=== PATIENT | male | born 1960 | race Caucasian/White ===

== ENCOUNTER 2023-07-30 10:12 | Outpatient (AMB) | payer OTHER, SELFPAY ==
[2023-07-30 10:19] VITALS: BP 132/70; PULSE 71; O2SAT 96; BMI 31.6
--- NOTE | 2023-07-30 10:19 | MHC.OFFVIS ---
Intake Vital Signs 07/30/23 10:19 Height 5 ft 10 in Weight 220 lb BMI 31.6 BP 132/70 Blood Pressure Location Lt brachial Position Sitting Pulse 71 Pulse Source Pulse Oximeter Pulse Oximetry (%) 96 Oxygen Delivery Method Room Air Intake Visit Reasons: COPD Valance Cutter Required: No Allergies meperidine [From Demerol] Adverse Reaction (Severe, Verified 07/30/23 10:22) Nausea HPI HPI Comments History of Present Illness Details The patient is here for a pulmonary evaluation. The patient is a 63-year-old gentleman with a known history of obstructive airway disease on Breo and Incruse who was subsequently referred for ongoing dyspnea on exertion. Apparently in 2018 the patient was diagnosed with follicular lymphoma localized to the groin. He was treated for this condition and currently being followed closely. He did have a PET scan just recently which we did get the report and reviewed together. Based on the CT PET no abnormalities noted in the thorax or the lungs. Does have not enlarged lymph nodes some with minimal FDG activity. Also some tendinitis otherwise good. He does continue to have dyspnea on exertion [id number] severity. Sometimes is limited by tendinitis that demonstrated on the PET scan. He does not always use his medication. Always concerned about taking too much medication or side effects. He does have Breo and Incruse he was not sure what to do how to taken. Therefore we came up with the protocol for him to use for now. We will in 4 she may benefit from something like Symbicort where he can use as needed with some relief. Will go ahead and request pulmonary function studies to assess his lung capacity at this time. Also, will get a flu shot before he goes home. Will have him come back in the springtime will discuss if we need to change his medications or they are working for him. [facility] Medical History (Updated 07/30/23 @ 12:31 by Porfirio Zapata MD) History of follicular lymphoma Dyspnea Asthma-COPD overlap syndrome Social History Patient Tobacco Use Status: Never used Tobacco Review of Systems Const Denies fever(s) and Reports weight gain ENT Denies nasal congestion Card Denies chest pain and Reports dyspnea on exertion Resp Reports dyspnea on exertion and Reports wheezing GI Reports no additional complaints Musc Reports muscle cramps and Reports stiffness Skin/Breast Denies rash Neuro Reports no additional complaints Noe/Lymph Denies easy bleeding, Denies easy bruising and Denies lymphadenopathy Aller/Immun Reports wheezing Physical Exam Vital Signs: Last Vital Signs Pulse 71 07/30/23 10:19 BP 132/70 07/30/23 10:19 Pulse Ox 96 07/30/23 10:19 Oxygen Delivery Method Room Air 07/30/23 10:19 BMI result Body Mass Index 31.6 Const General: comfortable HEENT Head: Yes normocephalic Neck Neck: Yes supple Chest Chest palpation & inspection: normal inspection of the chest Resp Effort & Inspection: normal respiratory effort and prolonged expiratory phase Auscultation: diminished lung sounds Cardio Heart sounds: S1 normal heart sound present and S2 normal heart sound present GI Palpation (GI): Soft to palpation Skin General skin exam: no rashes or lesions noted Extrem General: Yes no clubbing, cyanosis or edema Office Procedures Flu Questionnaire Does the patient have a severe egg allergy?: No Does the patient have severe life threatening allergies?: No Does the patient have a fever or illness today?: No Has the patient ever had Guillain-[place] Syndrome?: No Has the patient ever had any past reaction to a flu shot?: No Immunizations flu vacc [id number] 6mos up(PF) 60 mcg(15 mcgx4)/0.5 mL IM syringe Performing Provider: Porfirio Zapata MD Performing Location: [facility] Administered by: Clarisa Dobbs LPN on 07/30/23 11:19 Dose Route Admin Location Dispensed Lot Number Expiration Date NDC Byproducts Operator 0.5 mL IM Right Deltoid 0.5 mL [id number] 01/24/24 96096-825-95 [employer] VIS Given Date VIS Provided VIS Publication Date 07/30/23 Single Vaccine 21 Eligibility Eligibility Date Funding Source Not [facility] Eligible 07/30/23 Private Assessment & Plan Assessment & Plan (1) Asthma-COPD overlap syndrome: Code(s): J44.89 - Other specified chronic obstructive pulmonary disease (2) Dyspnea: Code(s): R06.00 - Dyspnea, unspecified Qualifiers: Dyspnea type: dyspnea on exertion Qualified Code(s): R06.09 - Other forms of dyspnea (3) History of follicular lymphoma: Code(s): Z85.72 - Personal history of non-Hodgkin lymphomas Plan Continue Breo and incruse consider changing to Symbicort MOISES as needed PFTs F/U 3-4 months Orders: Orders Influenza [id number] Immunization Today J44.9 - Chronic obstructive pulmonary disease, unspecified PFT pulmonary function test Today J44.89 - Other specified chronic obstructive pulmonary disease Coding Level of Care Code New Pt Level 4 (32942) Diagnoses Asthma-COPD overlap syndrome J44.89 Dyspnea on exertion R06.09 Dyspnea type: dyspnea on exertion History of follicular lymphoma Z85.72 Time Spent (min) 35
== END 2023-07-30 10:57 | disposition home or self-care (01) ==
PROVIDERS: PCP Internal Medicine Hematology & Oncology; Referring Provider Internal Medicine; Visit Provider Hospitalist
DX: J44.89 Other specified chronic obstructive pulmonary disease (principal); R06.09 Other forms of dyspnea; Z85.72 Personal history of non-Hodgkin lymphomas; J44.9 Chronic obstructive pulmonary disease, unspecified
CPT/HCPCS: 99204

== ENCOUNTER → 2023-07-30 10:12 | Outpatient (BNVA) | payer OTHER, SELFPAY | PROVIDERS: PCP Internal Medicine Hematology & Oncology; Referring Provider Internal Medicine; Visit Provider Hospitalist | DX: J44.89 Other specified chronic obstructive pulmonary disease (principal); R06.09 Other forms of dyspnea; Z85.72 Personal history of non-Hodgkin lymphomas; Z23 Encounter for immunization | CPT/HCPCS: 90471; 90686 ==

== ENCOUNTER 2023-11-06 11:00 | Outpatient (AMB) | payer OTHER, SELFPAY ==
[2023-11-06 11:03] VITALS: BP 120/74; PULSE 70; O2SAT 98; BMI 32.4
--- NOTE | 2023-11-06 11:03 | A.OFFVIS_ITS ---
Intake Vital Signs 11/06/23 11:03 Height 5 ft 10 in Weight 225 lb 15.581 oz BMI 32.4 BP 120/74 Blood Pressure Location Lt brachial Position Sitting Pulse 70 Pulse Source Pulse Oximeter Pulse Oximetry (%) 98 Oxygen Delivery Method Room Air Intake Visit Reasons: COPD [employer] Required: No Allergies meperidine [From Demerol] Adverse Reaction (Severe, Verified 11/06/23 11:06) Nausea HPI HPI Comments History of Present Illness Details The patient is a 63-year-old gentleman with a known history of obstructive airway disease on Breo and Incruse who was subsequently referred for ongoing dyspnea on exertion. Apparently in 2018 the patient was diagnosed with follicular lymphoma localized to the groin. He was treated for this condition and currently being followed closely. He did have a PET scan just recently which we did get the report and reviewed together. Based on the CT PET no abnormalities noted in the thorax or the lungs. Does have not enlarged lymph nodes some with minimal FDG activity. Also some tendinitis otherwise good. He does continue to have dyspnea on exertion [id number] severity. Sometimes is limited by tendinitis that demonstrated on the PET scan. He does not always use his medication. Always concerned about taking too much medication or side effects. He does have Breo and Incruse he was not sure what to do how to taken. Therefore we came up with the protocol for him to use for now. We will in she may benefit from something like Symbicort where he can use as needed with some relief. Will go ahead and request pulmonary function studies to assess his lung capacity at this time. Also, will get a flu shot before he goes home. Will have him come back in the springtime will discuss if we need to change his medications or they are working for him. 11/06/2023 the patient is here for a pulm onary follow-up visit. Overall he is well. He continues uses inhalers. Although he does not using daily. He does not feel like he needs them on a daily basis. He does have Breo and also Incruse. Apparently the Breo is not going to be company longer. He still has plenty since he does not use it daily and will call whenever he runs out. Will send him a generic combination inhaler at that point. He has not had to use his rescue inhaler. He does have history atrial fibrillation so I did mention to him to minimize the use of the rescue inhaler because it can indeed drive his AFib. He does feel the AFib at times. He does feel the palpitations in the regular rhythm. More recently he is noticed that he had been in the AFib. He does have the blood thinners. The patient does also have underlying daytime drowsiness and snoring. He was supposed to have sleep study in the past but for some reason it was never done. His [place] score is elevated 10/24. And was cardiac issues will go ahead and request a home sleep study this time. He may benefit more from an in-lab study but the patient states that he probably not be able sleeping the lab and therefore will go ahead with a home sleep study. No further imaging warranted at this time. Will go ahead and follow-up with him in 3-4 months to review his sleep study. Otherwise he will continue with his current respiratory regimen. [facility] Medical History (Updated 11/06/23 @ 11:19 by Porfirio Zapata MD) Afib JACKIE (obstructive sleep apnea) History of follicular lymphoma Dyspnea Asthma-COPD overlap syndrome Social History Patient Tobacco Use Status: Never used Tobacco Review of Systems Const Reports daytime sleepiness, Reports difficulty sleeping, Denies fever(s), Reports snoring and Reports weight gain ENT Denies nasal congestion Card Denies chest pain and Reports dyspnea on exertion Resp Reports dyspnea on exertion, Reports snoring and Reports wheezing GI Reports no additional complaints Musc Reports muscle cramps and Reports stiffness Skin/Breast Denies rash Neuro Reports no additional complaints Noe/Lymph Denies easy bleeding, Denies easy bruising and Denies lymphadenopathy Aller/Immun Reports wheezing Physical Exam Vital Signs: Last Vital Signs Pulse 70 11/06/23 11:03 BP 120/74 11/06/23 11:03 Pulse Ox 98 11/06/23 11:03 Oxygen Delivery Method Room Air 11/06/23 11:03 BMI result Body Mass Index 32.4 Const General: comfortable HEENT Head: Yes normocephalic Neck Neck: Yes supple Chest Chest palpation & inspection: normal inspection of the chest Resp Effort & Inspection: normal respiratory effort and prolonged expiratory phase Auscultation: diminished lung sounds Cardio Heart sounds: S1 normal heart sound present and S2 normal heart sound present GI Palpation (GI): Soft to palpation Skin General skin exam: no rashes or lesions noted Extrem General: Yes no clubbing, cyanosis or edema Assessment & Plan Assessment & Plan (1) Asthma-COPD overlap syndrome: Code(s): J44.89 - Other specified chronic obstructive pulmonary disease (2) Dyspnea: Code(s): R06.00 - Dyspnea, unspecified Qualifiers: Dyspnea type: dyspnea on exertion Qualified Code(s): R06.09 - Other forms of dyspnea (3) History of follicular lymphoma: Code(s): Z85.72 - Personal history of non-Hodgkin lymphomas (4) JACKIE (obstructive sleep apnea): Code(s): G47.33 - Obstructive sleep apnea (adult) (pediatric) (5) Afib: Code(s): I48.91 - Unspecified atrial fibrillation Plan Continue Breo and incruse MOISES as needed Home PSG F/U 3-4 months Orders: Orders RT home sleep study Today G47.33 - Obstructive sleep apnea (adult) (pediatric), I48.91 - Unspecified atrial fibrillation Coding Level of Care Code Est Pt Level 4 (83446) Diagnoses Asthma-COPD overlap syndrome J44.89 Dyspnea on exertion R06.09 Dyspnea type: dyspnea on exertion History of follicular lymphoma Z85.72 JACKIE (obstructive sleep apnea) G47.33 Afib I48.91 Time Spent (min) 16
== END 2023-11-06 11:21 | disposition home or self-care (01) ==
PROVIDERS: PCP Internal Medicine; Visit Provider Hospitalist
DX: J44.89 Other specified chronic obstructive pulmonary disease (principal); R06.09 Other forms of dyspnea; Z85.72 Personal history of non-Hodgkin lymphomas; G47.33 Obstructive sleep apnea (adult) (pediatric); I48.91 Unspecified atrial fibrillation
CPT/HCPCS: 99214

== ENCOUNTER → 2023-11-06 11:00 | Outpatient (BNVA) | payer OTHER, SELFPAY | PROVIDERS: PCP Internal Medicine Hematology & Oncology; Visit Provider Hospitalist ==

== ENCOUNTER 2024-02-16 10:11 | Outpatient (AMB) | payer OTHER, SELFPAY ==
--- NOTE | 2024-02-16 10:30 | MHC.OFFVIS ---
Vital Signs 02/16/24 10:31 Height 5 ft 10 in Weight 210 lb BMI 30.1 Pulse 67 Pulse Source Pulse Oximeter Pulse Oximetry (%) 96 Oxygen Delivery Method Room Air Intake Visit Reasons: COPD Allergies meperidine [From Demerol] Adverse Reaction (Severe, Verified 02/16/24 10:30) Nausea HPI Comments Details: The patient is a 63-year-old gentleman with a known history of obstructive airway disease on Breo and Incruse who was subsequently referred for ongoing dyspnea on exertion. Apparently in 2018 the patient was diagnosed with follicular lymphoma localized to the groin. He was treated for this condition and currently being followed closely. He did have a PET scan just recently which we did get the report and reviewed together. Based on the CT PET no abnormalities noted in the thorax or the lungs. Does have not enlarged lymph nodes some with minimal FDG activity. Also some tendinitis otherwise good. He does continue to have dyspnea on exertion [id number] severity. Sometimes is limited by tendinitis that demonstrated on the PET scan. He does not always use his medication. Always concerned about taking too much medication or side effects. He does have Breo and Incruse he was not sure what to do how to taken. Therefore we came up with the protocol for him to use for now. We will in 4 she may benefit from something like Symbicort where he can use as needed with some relief. Will go ahead and request pulmonary function studies to assess his lung capacity at this time. Also, will get a flu shot before he goes home. Will have him come back in the springtime will discuss if we need to change his medications or they are working for him. 11/06/2023 the patient is here for a pulmonary follow-up visit. Overall he is well. He continues uses inhalers. Although he does not using daily. He does not feel like he needs them on a daily basis. He does have Breo and also Incruse. Apparently the Breo is not going to be company longer. He still has plenty since he does not use it daily and will call whenever he runs out. Will send him a generic combination inhaler at that point. He has not had to use his rescue inhaler. He does have history atrial fibrillation so I did mention to him to minimize the use of the rescue inhaler because it can indeed drive his AFib. He does feel the AFib at times. He does feel the palpitations in the regular rhythm. More recently he is noticed that he had been in the AFib. He does have the blood thinners. The patient does also have underlying daytime drowsiness and snoring. He was supposed to have sleep study in the past but for some reason it was never done. His [place] score is elevated 10/24. And was cardiac issues will go ahead and request a home sleep study this time. He may benefit more from an in-lab study but the patient states that he probably not be able sleeping the lab and therefore will go ahead with a home sleep study. No further imaging warranted at this time. Will go ahead and follow-up with him in 3-4 months to review his sleep study. Otherwise he will continue with his current respiratory regimen. 02/16/2024 the patient is here for a pulmonary follow-up visit. The patient overall has been doing well. He is still having daytime drowsiness. His [place] score is elevated 10/24. He was supposed to have a home sleep study but then something came up and he could not have it done and then he has not rescheduled it. Therefore, I did give him the number in order for him to call and have that done specially since he continues to be symptomatic. For respiratory status he does uses inhalers with good effect. He has not had any imaging studies recently but he be following up with the oncologist soon. At this point will continue with the current respiratory therapy and will await the results of the home sleep study. [facility] Medical History (Updated 02/16/24 @ 22:53 by Porfirio Zapata MD) Afib JACKIE (obstructive sleep apnea) History of follicular lymphoma Dyspnea Asthma-COPD overlap syndrome Social History Patient Tobacco Use Status: Never used Tobacco Review of Systems Const Reports daytime sleepiness, Reports difficulty sleeping, Denies fever(s), Reports snoring and Reports weight gain ENT Denies nasal congestion Card Denies chest pain and Reports dyspnea on exertion Resp Reports dyspnea on exertion, Reports snoring and Denies wheezing GI Reports no additional complaints Musc Reports muscle cramps and Reports stiffness Skin/Breast Denies rash Neuro Reports no additional complaints Noe/Lymph Denies easy bleeding, Denies easy bruising and Denies lymphadenopathy Aller/Immun Denies wheezing Physical Exam Vital Signs: Last Vital Signs Pulse 67 02/16/24 10:31 Pulse Ox 96 02/16/24 10:31 Oxygen Delivery Method Room Air 02/16/24 10:31 BMI result Body Mass Index 30.1 Const General: comfortable HEENT Head: Yes normocephalic Neck Neck: Yes supple Chest Chest palpation & inspection: normal inspection of the chest Resp Effort & Inspection: normal respiratory effort Auscultation: diminished lung sounds Cardio Heart sounds: S1 normal heart sound present and S2 normal heart sound present GI Palpation (GI): Soft to palpation Skin General skin exam: no rashes or lesions noted Extrem General: Yes no clubbing, cyanosis or edema Assessment & Plan Assessment & Plan (1) Asthma-COPD overlap syndrome: Code(s): J44.89 - Other specified chronic obstructive pulmonary disease Category: Medical (2) Dyspnea: Code(s): R06.00 - Dyspnea, unspecified Category: Medical Qualifiers: Dyspnea type: dyspnea on exertion Qualified Code(s): R06.09 - Other forms of dyspnea (3) History of follicular lymphoma: Code(s): Z85.72 - Personal history of non-Hodgkin lymphomas Category: Medical (4) JACKIE (obstructive sleep apnea): Code(s): G47.33 - Obstructive sleep apnea (adult) (pediatric) Category: Medical (5) Afib: Code(s): I48.91 - Unspecified atrial fibrillation Category: Medical Qualifiers: Atrial fibrillation type: unspecified Qualified Code(s): I48.91 - Unspecified atrial fibrillation Plan Continue Breo and incruse MOISES as needed Home PSG F/U 6-8 months Coding Level of Care Code Est Pt Level 4 (58595) Diagnoses Asthma-COPD overlap syndrome J44.89 Dyspnea on exertion R06.09 Dyspnea type: dyspnea on exertion History of follicular lymphoma Z85.72 JACKIE (obstructive sleep apnea) G47.33 Atrial fibrillation, unspecified type I48.91 Atrial fibrillation type: unspecified Time Spent (min) 16
[2024-02-16 10:31] VITALS: PULSE 67; O2SAT 96; BMI 30.1
== END 2024-02-16 10:46 | disposition home or self-care (01) ==
PROVIDERS: PCP Internal Medicine; Visit Provider Hospitalist
DX: J44.89 Other specified chronic obstructive pulmonary disease (principal); R06.09 Other forms of dyspnea; Z85.72 Personal history of non-Hodgkin lymphomas; G47.33 Obstructive sleep apnea (adult) (pediatric); I48.91 Unspecified atrial fibrillation
CPT/HCPCS: 99214

== ENCOUNTER → 2024-02-16 10:11 | Outpatient (BNVA) | payer OTHER, SELFPAY | PROVIDERS: PCP Internal Medicine; Visit Provider Hospitalist | DX: G47.33 Obstructive sleep apnea (adult) (pediatric) (principal); I48.91 Unspecified atrial fibrillation ==

== ENCOUNTER → 2024-05-26 08:56 | Outpatient (REF) | payer OTHER, SELFPAY | LOC: HO.SL 08:56 | PROVIDERS: PCP Internal Medicine; Visit Provider Hospitalist | DX: G47.33 Obstructive sleep apnea (adult) (pediatric) (principal); I48.91 Unspecified atrial fibrillation | CPT/HCPCS: 95806 ==

== ENCOUNTER → 2024-05-26 09:15 | Outpatient (BNV) | payer OTHER, SELFPAY | PROVIDERS: PCP Internal Medicine; Visit Provider Internal Medicine | DX: G47.33 Obstructive sleep apnea (adult) (pediatric) (principal) | CPT/HCPCS: 95806 ==

== ENCOUNTER 2024-06-29 10:10 | Outpatient (AMB) | payer OTHER, SELFPAY ==
[2024-06-29 10:21] VITALS: BP 122/70; PULSE 75; O2SAT 98
--- NOTE | 2024-06-29 10:21 | A.OFFVIS_ITS ---
Vital Signs 06/29/24 10:21 BP 122/70 Blood Pressure Location Lt brachial Position Sitting Pulse 75 Pulse Source Pulse Oximeter Pulse Oximetry (%) 98 Oxygen Delivery Method Room Air Intake Visit Reasons: COPD/Sleep Study Follow Up Allergies meperidine [From Demerol] Adverse Reaction (Severe, Verified 06/29/24 10:25) Nausea Medication List - Last Reconciled 06/29/24 by Clarisa Dobbs LPN amlodipine-benazepril 10-20 mg 1 cap PO DAILY apixaban (Eliquis) 5 mg PO BID fluticasone furoate-vilanterol 100-25 mcg/dose (Breo Ellipta) 1 ea inhalation DAILY metoprolol tartrate 25 mg PO BID nebulizers As directed umeclidinium 62.5 mcg/actuation (Incruse Ellipta) 1 inh inhalation DAILY HPI Comments Details: The patient is a 64-year-old gentleman with a known history of obstructive airway disease on Breo and Incruse who was subsequently referred for ongoing dyspnea on exertion. Apparently in 2018 the patient was diagnosed with follicular lymphoma localized to the groin. He was treated for this condition and currently being followed closely. He did have a PET scan just recently which we did get the report and reviewed together. Based on the CT PET no abnormalities noted in the thorax or the lungs. Does have not enlarged lymph nodes some with minimal FDG activity. Also some tendinitis otherwise good. He does continue to have dyspnea on exertion [id number] severity. Sometimes is limited by tendinitis that demonstrated on the PET scan. He does not always use his medication. Always concerned about taking too much medication or side effects. He does have Breo and Incruse he was not sure what to do how to taken. Therefore we came up with the protocol for him to use for now. We will in 4 she may benefit from something like Symbicort where he can use as needed with some relief. Will go ahead and request pulmonary function studies to assess his lung capacity at this time. Also, will get a flu shot before he goes home. Will have him come back in the springtime will discuss if we need to change his medications or they are working for him. 11/06/2023 the patient is here for a pulmonary follow-up visit. Overall he is well. He continues uses inhalers. Although he does not using daily. He does not feel like he needs them on a daily basis. He does have Breo and also Incruse. Apparently the Breo is not going to be company longer. He still has plenty since he does not use it daily and will call whenever he runs out. Will send him a generic combination inhaler at that point. He has not had to use his rescue inhaler. He does have history atrial fibrillation so I did mention to him to minimize the use of the rescue inhaler because it can indeed drive his AFib. He does feel the AFib at times. He does feel the palpitations in the regular rhythm. More recently he is noticed that he had been in the AFib. He does have the blood thinners. The patient does also have underlying daytime drowsiness and snoring. He was supposed to have sleep study in the past but for some reason it was never done. His [place] score is elevated 10/24. And was cardiac issues will go ahead and request a home sleep study this time. He may benefit more from an in-lab study but the patient states that he probably not be able sleeping the lab and therefore will go ahead with a home sleep study. No further imaging warranted at this time. Will go ahead and follow-up with him in 3-4 months to review his sleep study. Otherwise he will continue with his current respiratory regimen. 02/16/2024 the patient is here for a pulmonary follow-up visit. The patient overall has been doing well. He is still having daytime drowsiness. His [place] score is elevated 10/24. He was supposed to have a home sleep study but then something came up and he could not have it done and then he has not rescheduled it. Therefore, I did give him the number in order for him to call and have that done specially since he continues to be symptomatic. For respiratory status he does uses inhalers with good effect. He has not had any imaging studies recently but he be following up with the oncologist soon. At this point will continue with the current respiratory therapy and will await the results of the home sleep study. 06/29/2024 the patient is here for pulmonary follow-up visit. Overall she is doing okay. He still complains of congestive cough. Also bothers him at nighttime. Feels like has a postnasal drip that causes the congestion in the chest area. Then he feels like the congestion in the mucus gets stuck in the back of throat and sometimes he needs to feel like he needs to manually remove it. In addition to that he has been having daytime drowsiness. His [place] score is elevated 06/19. He also have cardiovascular risk factors including atrial fibrillation. He did undergo a home sleep study which we personally reviewed. The patient had an AHI of 8 in addition to have a heart rate elevated and also was noted to be hypoxic. Therefore, I do recurrent the patient start CPAP at this time. The patient is also recovering after COVID. After the COVID the patient did develop a productive cough and chest congestion. Therefore will go ahead and treat him from bronchitis postviral. And also will provide him with a nasal spray. [facility] Medical History (Updated 02/16/24 @ 22:53 by Porfirio Zapata MD) Afib JACKIE (obstructive sleep apnea) History of follicular lymphoma Dyspnea Asthma-COPD overlap syndrome Social History Patient Tobacco Use Status: Never used Tobacco Review of Systems Const Reports daytime sleepiness, Reports difficulty sleeping, Denies fever(s), Reports snoring and Reports weight gain ENT Denies nasal congestion Card Denies chest pain and Reports dyspnea on exertion Resp Reports dyspnea on exertion, Reports snoring and Denies wheezing GI Reports no additional complaints Musc Reports muscle cramps and Reports stiffness Skin/Breast Denies rash Neuro Reports no additional complaints Noe/Lymph Denies easy bleeding, Denies easy bruising and Denies lymphadenopathy Aller/Immun Denies wheezing Physical Exam Vital Signs: Last Vital Signs Pulse 75 06/29/24 10:21 BP 122/70 06/29/24 10:21 Pulse Ox 98 06/29/24 10:21 Oxygen Delivery Method Room Air 06/29/24 10:21 Const General: comfortable HEENT Head: Yes normocephalic Neck Neck: Yes supple Chest Chest palpation & inspection: normal inspection of the chest Resp Effort & Inspection: normal respiratory effort Auscultation: diminished lung sounds Cardio Heart sounds: S1 normal heart sound present and S2 normal heart sound present GI Palpation (GI): Soft to palpation Skin General skin exam: no rashes or lesions noted Extrem General: Yes no clubbing, cyanosis or edema Assessment & Plan Assessment & Plan (1) Asthma-COPD overlap syndrome: Code(s): J44.89 - Other specified chronic obstructive pulmonary disease Category: Medical (2) Dyspnea: Code(s): R06.00 - Dyspnea, unspecified Category: Medical Qualifiers: Dyspnea type: dyspnea on exertion Qualified Code(s): R06.09 - Other forms of dyspnea (3) History of follicular lymphoma: Code(s): Z85.72 - Personal history of non-Hodgkin lymphomas Category: Medical (4) JACKIE (obstructive sleep apnea): Code(s): G47.33 - Obstructive sleep apnea (adult) (pediatric) Category: Medical (5) Afib: Code(s): I48.91 - Unspecified atrial fibrillation Category: Medical Qualifiers: Atrial fibrillation type: unspecified Qualified Code(s): I48.91 - Unspecified atrial fibrillation Plan stop Breo and incruse start Doxycycline ipratropium nasal nasal spray MOISES as needed start APAP F/U 3-4 months Medications: New doxycycline monohydrate 100 mg PO BID 28 tabs 0RF 14 days ipratropium bromide administer into each nostril 2 sprays intranasal TID PRN 15 mL 6RF allergy symptoms Coding Level of Care Code Est Pt Level 4 (96666) Diagnoses Asthma-COPD overlap syndrome J44.89 Dyspnea on exertion R06.09 Dyspnea type: dyspnea on exertion History of follicular lymphoma Z85.72 JACKIE (obstructive sleep apnea) G47.33 Atrial fibrillation, unspecified type I48.91 Atrial fibrillation type: unspecified Time Spent (min) 17
== END 2024-06-29 10:59 | disposition home or self-care (01) ==
PROVIDERS: PCP Internal Medicine; Visit Provider Hospitalist
DX: J44.89 Other specified chronic obstructive pulmonary disease (principal); R06.09 Other forms of dyspnea; Z85.72 Personal history of non-Hodgkin lymphomas; G47.33 Obstructive sleep apnea (adult) (pediatric); I48.91 Unspecified atrial fibrillation
CPT/HCPCS: 99214

== ENCOUNTER → 2024-06-29 10:10 | Outpatient (BNVA) | payer OTHER, SELFPAY | PROVIDERS: PCP Internal Medicine; Visit Provider Hospitalist ==

== ENCOUNTER 2024-11-25 10:34 | Outpatient (AMB) | payer OTHER, SELFPAY ==
[2024-11-25 10:45] VITALS: BP 116/62; PULSE 70; O2SAT 97; BMI 29.9
--- NOTE | 2024-11-25 10:45 | A.OFFVIS_ITS ---
Vital Signs 11/25/24 10:45 Height 5 ft 10 in Weight 208 lb 5.389 oz BMI 29.9 BP 116/62 Blood Pressure Location Lt brachial Position Sitting Pulse 70 Pulse Source Pulse Oximeter Pulse Oximetry (%) 97 Oxygen Delivery Method Room Air Intake Visit Reasons: COPD Power Plant Inspector Required: No Accompanied by: Self / Same As Patient Allergies meperidine [From Demerol] Adverse Reaction (Severe, Verified 11/25/24 10:48) Nausea HPI Comments Details: The patient is a 64-year-old gentleman with a known history of obstructive airway disease on Breo and Incruse who was subsequently referred for ongoing dyspnea on exertion. Apparently in 2018 the patient was diagnosed with follicular lymphoma localized to the groin. He was treated for this condition and currently being followed closely. He did have a PET scan just recently which we did get the report and reviewed together. Based on the CT PET no abnormalities noted in the thorax or the lungs. Does have not enlarged lymph nodes some with minimal FDG activity. Also some tendinitis otherwise good. He does continue to have dyspnea on exertion ktyt-ed-holswcqz severity. Sometimes is limited by tendinitis that demonstrated on the PET scan. He does not always use his medication. Always concerned about taking too much medication or side effects. He does have Breo and Incruse he was not sure what to do how to taken. Therefore we came up with the protocol for him to use for now. We will in 4 she may benefit from something like Symbicort where he can use as needed with some relief. Will go ahead and request pulmonary function studies to assess his lung capacity at this time. Also, will get a flu shot before he goes home. Will have him come back in the springtime will discuss if we need to change his medications or they are working for him. 11/06/2023 the patient is here for a pulmonary follow-up visit. Overall he is well. He continues uses inhalers. Although he does not using daily. He does not feel like he needs them on a daily basis. He does have Breo and also Incruse. Apparently the Breo is not going to be company longer. He still has plenty since he does not use it daily and will call whenever he runs out. Will send him a generic combination inhaler at that point. He has not had to use his rescue inhaler. He does have history atrial fibrillation so I did mention to him to minimize the use of the rescue inhaler because it can indeed drive his AFib. He does feel the AFib at times. He does feel the palpitations in the regular rhythm. More recently he is noticed that he had been in the AFib. He does have the blood thinners. The patient does also have underlying daytime drowsiness and snoring. He was supposed to have sleep study in the past but for some reason it was never done. His [place] score is elevated 10/24. And was cardiac issues will go ahead and request a home sleep study this time. He may benefit more from an in-lab study but the patient states that he probably not be able sleeping the lab and therefore will go ahead with a home sleep study. No further imaging warranted at this time. Will go ahead and follow-up with him in 3-4 months to review his sleep study. Otherwise he will continue with his current respiratory regimen. 02/16/2024 the patient is here for a pulmonary follow-up visit. The patient overall has been doing well. He is still having daytime drowsiness. His [place] score is elevated 10/24. He was supposed to have a home sleep study but then something came up and he could not have it done and then he has not rescheduled it. Therefore, I did give him the number in order for him to call and have that done specially since he continues to be symptomatic. For respiratory status he does uses inhalers with good effect. He has not had any imaging studies recently but he be following up with the oncologist soon. At this point will continue with the current respiratory therapy and will await the results of the home sleep study. 06/29/2024 the patient is here for pulmonary follow-up visit. Overall she is doing okay. He still complains of congestive cough. Also bothers him at nighttime. Feels like has a postnasal drip that causes the congestion in the chest area. Then he feels like the congestion in the mucus gets stuck in the back of throat and sometimes he needs to feel like he needs to manually remove it. In addition to that he has been having daytime drowsiness. His [place] score is elevated 11/24. He also have cardiovascular risk factors including atrial fibrillation. He did undergo a home sleep study which we personally reviewed. The patient had an AHI of 8 in addition to have a heart rate elevated and also was noted to be hypoxic. Therefore, I do recurrent the patient start CPAP at this time. The patient is also recovering after COVID. After the COVID the patient did develop a productive cough and chest congestion. Therefore will go ahead and treat him from bronchitis postviral. And also will provide him with a nasal spray. 11/25/2024 the patient is here for pulmonary follow-up visit. Overall he is doing okay. He has a hard time tolerating the CPAP. Can not seem to fall asleep with it. He struggles with it. Has not seen any benefit from it as of yet. He is willing to try a sleep aid to see if we can him to fall asleep. He prefers sleeping on his belly and does want his most of the apneic episodes. If she can not tolerate the CPAP be moving the sleep aid he can try positional therapy sleeping with the right side down. I did recommend a positional pillow or symptoms we can continue in the position. In the meantime he has a hard time with his breathing. Has had some chest tightness and wheezing. Initially could not get his medications because of the significant co-pay is in the donut hole. Now he states that after spending serum on my he can get his medications regularly some put him back on Trelegy and can take that daily and should have a rescue inhaler also available. He does have some wheezing on exam. The patient will bring his CPAP to the next visit in 4 months if he has any issues prior to that he will call for an earlier assessment. [facility] Medical History Afib JACKIE (obstructive sleep apnea) History of follicular lymphoma Dyspnea Asthma-COPD overlap syndrome Social History Alcohol intake: current Alcohol intake frequency: 0-2 drinks per day Patient Tobacco Use Status: Never used Tobacco Review of Systems Const Denies chills, Denies fatigue, Denies fever(s), Denies weight gain and Denies weight loss ENT Denies dizziness Card Denies chest pain, Denies leg edema, Denies lightheadedness, Denies palpitations, Reports dyspnea on exertion, Denies orthopnea and Denies other Resp Reports cough and Reports dyspnea on exertion GI Denies hematochezia and Denies change in stool character Musc Denies abnormal gait, Denies muscle weakness, Denies numbness, Denies radiating pain into limb and Denies tingling Neuro Denies abnormal gait, Denies dizziness, Denies numbness and Denies tingling Endo Denies fatigue and Denies palpitations Physical Exam Vital Signs: Last Vital Signs Pulse 70 11/25/24 10:45 BP 116/62 11/25/24 10:45 Pulse Ox 97 11/25/24 10:45 Oxygen Delivery Method Room Air 11/25/24 10:45 BMI result Body Mass Index 29.9 Const General: comfortable HEENT Head: Yes normocephalic Neck Neck: Yes supple Chest Chest palpation & inspection: normal inspection of the chest Resp Effort & Inspection: normal respiratory effort Auscultation: diminished lung sounds Cardio Heart sounds: S1 normal heart sound present and S2 normal heart sound present GI Palpation (GI): Soft to palpation Skin General skin exam: no rashes or lesions noted Extrem General: Yes no clubbing, cyanosis or edema Assessment & Plan Assessment & Plan (1) Asthma-COPD overlap syndrome: Code(s): J44.89 - Other specified chronic obstructive pulmonary disease Category: Medical (2) Dyspnea: Code(s): R06.00 - Dyspnea, unspecified Category: Medical Qualifiers: Dyspnea type: dyspnea on exertion Qualified Code(s): R06.09 - Other forms of dyspnea (3) History of follicular lymphoma: Code(s): Z85.72 - Personal history of non-Hodgkin lymphomas Category: Medical (4) JACKIE (obstructive sleep apnea): Code(s): G47.33 - Obstructive sleep apnea (adult) (pediatric) Category: Medical (5) Afib: Code(s): I48.91 - Unspecified atrial fibrillation Category: Medical Qualifiers: Atrial fibrillation type: unspecified Qualified Code(s): I48.91 - Unspecified atrial fibrillation Plan start Trelegy start Ambien as needed for needed ipratropium nasal nasal spray MIOSES as needed continue APAP F/U 3-4 months Medications: New gxlgawixkhd-umkbtbaek-ufcjchko 100-62.5-25 mcg (Trelegy Ellipta) 1 inh inhalation DAILY 60 ea 11RF 30 days J44.9 - Chronic obstructive pulmonary disease, unspecified zolpidem (Ambien) 5 mg PO BEDTIME PRN 30 tabs 0RF sleep 30 days albuterol sulfate 90 mcg/actuation 2 inhalations inhalation Q6H PRN 18 grams 12RF shortness of breath or wheezing 30 days J44.9 - Chronic obstructive pulmonary disease, unspecified Coding Level of Care Code Est Pt Level 4 (01650) Complex EM visit Add On G2211 Diagnoses Asthma-COPD overlap syndrome J44.89 Dyspnea on exertion R06.09 Dyspnea type: dyspnea on exertion History of follicular lymphoma Z85.72 JACKIE (obstructive sleep apnea) G47.33 Atrial fibrillation, unspecified type I48.91 Atrial fibrillation type: unspecified Time Spent (min) 17
--- OUTSIDE RECORDS SUMMARY | 2024-11-25 11:39 | XMS_ITS | Clinical Summary ---
Author Organization [facility] Address [address] [place] [address] Care Team Providers Care Bend Sorter Name Role Phone Krishan Cruz MD Primary Care Provider Allergies Active Allergy Reactions Criticality Noted Date Comments Meperidine 09/01/2017 Medications Medication Sig Dispensed Refills Start Date End Date Status albuterol (PROVENTIL HFA;VENTOLIN HFA) 108 (90 BASE) MCG/ACT inhaler Inhale 2 puffs into the lungs every 6 (six) hours as needed. 0 Active Fluticasone Furoate-Vilanterol (BREO ELLIPTA IN) Inhale into the lungs. 0 Active INCRUSE ELLIPTA 62.5 MCG/INH AEPB INHALE 1 PUFF PO QD 11 10/22/2017 Act geo aspirin 81 MG chewable tablet Chew 1 tablet (81 mg total) by mouth daily. 0 Active Multiple Vitamins-Minerals (MULTIVITAMIN ADULT PO) Take 1 tablet by mouth daily. 0 Active vitamin B-12 (CYANOCOBALAMIN) tablet 1000 mcg Take 1 tablet (1,000 mcg total) by mouth daily. 0 Active omeprazole (PriLOSEC) 20 MG capsule Take 2 capsules (40 mg total) by mouth daily. 0 Active amLODIPine 5 MG TABS 1 tablet, benazepril 20 MG TABS 1 tablet Take 1 tablet by mouth daily. 0 Active Eliquis 5 MG TABS tablet Take 1 tablet (5 mg total) by mouth 2 (two) times a day. 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 Asthma 12/23/2016 Obstructive sleep apnea syndrome 10/21/2016 Family History Medical History Relation Name Comments Cancer Brother 1 skin- squamus c ell ca - face No Sig Med Hx Brother 2 No Sig Med Hx Brother 3 No Sig Med Hx Daughter Cancer Father brain tumor- di ed from it Cancer Maternal Grandmother hodgkin lymphoma - from it No Sig Med Hx Mother Cancer Paternal Grandmother brain t umor No Sig Med Hx Sister No Sig Med Hx Son Relation Name Status Comments Brother 1 Alive Brother 2 Alive TWIN Brother 3 Alive Daughter Alive Father Maternal Grandmother Mother Alive Paternal Grandmother Sister Alive Son Alive Social History Tobacco Use Types Packs/Day Years Used Date Smoking Tobacco: Never Smokeless Tobacco: Never Alcohol Use Standard Drinks/Week Comments Yes 0 (1 standard drink = 0.6 oz pur e alcohol) Vodka - 1 pint daily Sex and Gender Information Value Date Recorded Sex Assigned at Not on file Gender Identity Not on file Sexual Orientation Not on file Job Start Date Occupation Industry Not on file Not on file Not on file Last Filed Vital Signs Vital Sign Reading Time Taken Comments Blood Pressure 143/74 04/26/2024 10:01 AM EDT Pulse 65 04/26/2024 10:01 AM EDT Temperature 36.6 ??C (97.8 ??F) 04/26/2024 10:01 AM E DT Respiratory Rate - - Oxygen Saturation 100% 04/26/2024 10:01 AM EDT Inhaled Oxygen Concentration - - Weight 94.1 kg (207 lb 6.4 oz) 04/26/2024 10:01 AM EDT Height 177.8 cm (5' 10 ) 04/26/2024 10:01 AM EDT Body Mass Index 29.76 04/26/2024 10:01 AM EDT Plan of Treatment Health Maintenance Due Date Last Done Comments Hepatitis C Screening 1960 Pneumococcal Vaccine (1 of 2 - PCV) 1964 Depression Screening 1970 Preventative Health Evaluation 1976 Shingrix-Zoster Vaccine (1 o f 2) 1977 Colon Cancer Screening (Colonoscopy) 2003 RSV Adult > 60+ Yrs or (1 - Risk 60-74 years 1-dose series) 2018 COVID-19 Vaccine (3 - Pfizer risk series) 12/26/2020 11/28/2020, 11/06/2020 Fall Risk Assessment 2023 Influenza Vaccine (#1) 2024 DTap / Tdap / Td (3 - Td or Tdap) 04/30/2029 04/30/2019, 03/16/2017 Hepatitis B Vaccines Aged Out No long er eligible based on patient's age to complete this topic RSV Ped < 20 months Aged Out No longe r eligible based on patient's age to complete this topic Care Teams Bend Sorter Relationship Specialty Start Date End Date Krishan Cruz MD PCP - General Internal Medicine 08/27/17
--- OUTSIDE RECORDS SUMMARY | 2024-11-25 11:39 | XMS_ITS | Encounter Summary ---
Author Organization [facility] Address [address] [place] [address] Care Team Providers Care Load Checker Name Role Phone Krishan Cruz MD Primary Care Provider + [phone] Encounter Details Date Type Department Care Team (Late st Contact Info) Description 04/26/2024 9:54 AM EDT Hospital Encounter TH HISTORIC ENCOUNTERS [facility] CONVERSION ONLY Radha Yap MD [address] [place] [phone] Social History Tobacco Use Types Packs/Day [...] 10:28 AM Encounter Date: 04/26/2024 Status: Signed Political Science Instructor: Radha Hamilton MD (Physician) CHIEF COMPLAINT: Chief [...] I will make a referral to Lesley oLuise as this might be easier for him. [...] a curable disease however we could expect fci remission given his limited disease. We will [...] sweats. He remains active, working in the [employer] business. He has gained some weight over [...] Copy reviewed with the patient and reassured. He has in fact gained some weight. He has [...] 12/23/2016 ? COPD (chronic obstructive pulmonary disease) ([facility]) 03/08/2018 ? Obstructive sleep apnea syndrome 10/21/2016 ? Simple chronic bronchitis ([facility]) 01/15/2018 ? Hot flashes 08/13/2022 ? Paroxysmal atrial fibrillation ([facility]) 08/13/2022 ? Axillary lymphadenopathy 04/06/2023 ? Hydrocele, [...] Care Team (Late st Contact Info) Description 03/28/2025 10:20 AM EDT Office Visit [facility] [address] [place] [address] Cecil Almonte MD [address] [place] [address],[address] [address] 04/26/2025 9:45 AM EDT Office Visit [facility] Hematology Oncology [address] [place] [phone] Zainab-Radha Ribera MD [address] [place] [phone] documented as of this encounter Visit Diagnoses Not on filedocumented in this encounter Care Teams Load Checker Relationship Specialty Start Date End Date Krishan Cruz MD PCP - General Internal Medicine 04/14/22 documented as of this encounter
--- OUTSIDE RECORDS SUMMARY | 2024-11-25 11:40 | XMS_ITS | Encounter Summary ---
Author Organization [facility] Address [address] [place] [address] Care Team Providers Care Composition Weatherboard Applier Name Role Phone Devi Dang Primary Care Provider Unavail able Gamaliel Rodgers MD Unavailable [phone] Ayaka Garcia NP Unavailable + [phone] Krishan Cruz MD Primary Care Provider Unav ailable Krishan Cruz MD Primary Care Provider Unav ailable Reason for Visit * Reason Onset Date Comments hospital follow up 04/09/2022 Patient reque sting HFU apopointment jannette Almonte Encounter Details Date Type Department Care Team Description 04/09/2022 Telephone Cardio PVC POC [address] [facility] [address] [place] [address] Gamaliel Rodgers MD [address] [place] [address] hospital follow up (Patient requesting HFU apopointment jannette Almonte) Social History Tobacco Use Types Packs/Day Years Used Date Smoking Tobacco: Never Smokeless Tobacco: Never Alcohol Use Standard Drinks/Week Comments Yes 6 (1 standard drink = 0.6 oz pur e alcohol) Sex Assigned at Date Recorded Not on file Job Start Date Occupation Industry Not on file Not on file Not on file documented as of this encounter Miscellaneous Notes * Telephone Encounter - Dayanara Lopez - 04/10/2022 2:16 PM EDT Hospital follow up appointment scheduled with Ayaka Garcia on Thursday, April 28, 2022 at 1:30PM. I called Daniele and left a voicemail with the appointment info. * Telephone Encounter - Shelby Matthews - 04/09/2022 10:33 AM EDT Patient is requesting hospital follow appointment with , he was discharged from [facility] on 04/08/22. Patient could be reached at [phone] documented in this encounter Plan of Treatment Not on file documented as of this encounter Visit Diagnoses Not on filedocumented in this encounter Care Teams Composition Weatherboard Applier Relationship Specialty Start Date End Date Devi Dang PCP - General Internal Medicine 10/22/21 04/13/22 Krishan Cruz MD [address] [place] [address] PCP - General Internal Medicine 04/14/22 03/11/23 Krishan Cruz MD [address] [place] [address] PCP - General Internal Medicine 03/12/23 Gamaliel Rodgers MD [address] [place] [address] Specialist Cardiovascular Disease 10/22/21 Ayaka Garcia, LYN [address] [place] [address] Cardiology 04/10/22 documented as of this encounter
--- OUTSIDE RECORDS SUMMARY | 2024-11-25 11:40 | XMS_ITS | Encounter Summary ---
Author Organization [facility] Address [address] [place] [address] Care Team Providers Care Electrician Front Name Role Phone Devi Dang Primary Care Provider Unavail able Gamaliel Rodgers MD Unavailable [phone] Ayaka Garcia TOURIST CABIN KEEPER Unavailable + [phone] Krishan Cruz MD Primary Care Provider Unav ailable Krishan Cruz MD Primary Care Provider Unav ailable Encounter Details Date Type Department Care Team Description 04/08/2022 Telephone Cardio PVC [facility] [address] [place] [address] Cecil Almonte MD [address] [place] [address] Social History Tobacco Use Types Packs/Day Years [...] encounter Miscellaneous Notes * Telephone Encounter - Gamaliel Rodgers MD - 04/08/2022 4:12 PM EDT Gideon Jacob * Telephone Encounter - Cecil Almonte MD - 04/08/2022 1:54 PM EDT I saw Mr. Wynn at [facility] in consultation. He came in for evaluation of palpitations and was found to be in atrial fibrillation with a moderately rapid ventricular response. He wasunclear regarding the onset of symptoms and the duration of his dysrhythmia. I initially plan to treat him with rate control but his rate actually worsened despite metoprolol 50 mg twice daily. Accordingly this morning I started him on Eliquis and made arrangements for a KESHA guided cardioversion. The patient spontaneously converted to sinus rhythm less than an hour prior to his anticipated cardioversion. Accordingly I am sending him home on Eliquis 5 mg twice a day and metoprolol 50 mg twice a day. He states that he will immediately stop drinking alcohol. He additionally reports that his is an uncontrolled alcoholic for whom he is seeking crisis intervention. I am making arrangements for a 48-hour Holter monitor to be performed next week and for an echocardiogram to be scheduled in the near future prior to anticipated follow-up evaluation by either Ayaka Garcia or Sandeep Rodgers. Consideration might be given in the future to a sleep study to rule out ob structive sleep apnea syndrome. I am hopeful that this note helps coordinate his ongoing care. Please send a copy of this note to Dr. Krishan Cruz... documented in this encounter Plan of Treatment Not on file documented as of this encounter Results * ECG HOLTER MONITOR, REVIEW/INTERP (07/16/2022) Cecil Almonte MD CARDIOLOGY Performing Organization Address [facility] de Phone Number PVCA * ECHO COMPLETE WITH CONTRAST IF CLINICALLY INDICATED (04/24/2022) Cecil Almonte MD CARDIOLOGY Performing Organization Address [facility] Co de Phone Number PVCA documented in this encounter Visit Diagnoses Diagnosis Paroxysmal atrial fibrillation (HCC)- Primary Atrial fibrillation Essential hypertension Unspecified essential hypertension documented in this encounter Care Teams Electrician Front Relationship Specialty Start Date End Date Devi Dang PCP - General Internal Medicine 10/22/21 04/13/22 Krishan Cruz MD [address] [facility] [address] [place] [address] PCP - General Internal Medicine 04/14/22 03/11/23 Krishan Cruz MD [address] [place] [address] PCP - General Internal Medicine 03/12/23 Gamaliel Rodgers MD [address] [place] [address] Specialist Cardiovascular Disease 10/22/21 Ayaka Garcia NP [address] [place] [address] Cardiology 04/10/22 documented as of this encounter
--- OUTSIDE RECORDS SUMMARY | 2024-11-25 11:40 | XMS_ITS | Encounter Summary ---
Author Organization [facility] Address [address] [place] [address] Care Team Providers Care Process Assistant Name Role Phone Devi Dang Primary Care Provider Unavail able Gamaliel Rodgers MD Unavailable [phone] Ayaka Garcia BOWLING OR SKATING FRONT DESK CLERK Unavailable [phone] Krishan Cruz MD Primary Care Provider Unav ailable Krishan Cruz MD Primary Care Provider Unav ailable Encounter Details Date Type Department Care Team Description 03/26/2022 SCAN Medical Records [address] [place] [address] Abstract, Provider Social History Tobacco Use Types Packs/Day Years Used Date Smoking Tobacco: Never Smokeless Tobacco: Never Alcohol Use Standard Drinks/Week Comments Yes 6 (1 standard drink = 0.6 oz pur e alcohol) Sex Assigned at Date Recorded Not on file Job Start Date Occupation Industry Not on file Not on file Not on file documented as of this encounter Plan of Treatment Not on file documented as of this encounter Procedures Procedure Name Priority Date/Time Associated Diagnosis Comments OUTSIDE LAB Routine 03/26/2022 documented in this encounter Results * OUTSIDE LAB (03/26/2022) Provider Abstract LAB documented in this encounter Visit Diagnoses Not on filedocumented in this encounter Care Teams Process Assistant Relationship Specialty Start Date End Date Devi Dang PCP - General Internal Medicine 10/22/21 04/13/22 Krishan Cruz MD [address] [facility] [address] [place] [address] PCP - General Internal Medicine 04/14/22 03/11/23 Krishan Cruz MD [address] [place] [address] PCP - General Internal Medicine 03/12/23 Gamaliel Rodgers MD [address] [place] [address] Specialist Cardiovascular Disease 10/22/21 Ayaka Garcia NP [address] [place], [place] [id number] Cardiology 04/10/22 documented as of this encounter
--- OUTSIDE RECORDS SUMMARY | 2024-11-25 11:40 | XMS_ITS | Clinical Summary ---
Author Organization [facility] Address [address] [place] [address], [place] [address] Care Team Providers Care Lasting Machine Operator Bed Name Role Phone Krishan Cruz MD Primary Care Provider [phone] Allergies Active Allergy Reactions Criticality Noted Date Comments Meperidine 09/01/2017 Medications Fluticasone Furoate-Vilanter ol (Breo Ellipta) 100-25 MCG/INH aerosol powder Active lisinopril-hydro CHLOROthiazide (PRINZIDE,ZESTOR ETIC) 20-12.5 MG per tablet Take 1 tablet by mouth 1 (one) time each day Active metoprolol tartrate (LOPRESSOR) 25 MG tablet Take 1 tablet by mouth 2 (two) times a day Active Umeclidinium [place] (Incruse Ellipta) 62.5 MCG/INH aerosol powder Active Active Problems Problem Noted Date Diagnosed Date Essential hypertension 10/03/2020 Family history of neoplasm of central nervous sy stem 12/14/2019 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 Chronic obstructive pulmonary disease 03/08/2018 Simple chronic bronchitis 01/15/2018 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 Asthma 12/23/2016 Obstructive sleep apnea syndrome 10/21/2016 Family History Medical History Relation Comments Hypertension Father Relation Status Comments Father Mother Alive Social History Tobacco Use Types Packs/Day Years Used Date Smoking Tobacco: Never Smokeless Tobacco: Never Alcohol Use Standard Drinks/Week Comments Yes 0 (1 standard drink = 0.6 oz pure alcohol) Alcoholic Drinks/day: 3 or more drinks per day Sex and Gender Information Value Date Recorded Sex Assigned at Not on file Legal Sex Male 4:56 PM EST Gender Identity Not on file Sexual Orientation Not on file Last Filed Vital Signs Vital Sign Reading Time Taken Comments Blood Pressure 150/90 09/26/2019 12:00 PM EST Pulse 79 09/26/2019 12:00 PM EST Temperature - - Respiratory Rate - - Oxygen Saturation - - Inhaled Oxygen Concentration - - Weight 98 kg (216 lb) 09/26/2019 12:00 PM EST Height 177.8 cm (5' 10 ) 11/17/2019 12:00 PM EDT Body Mass Index 30.99 09/26/2019 12:00 PM EST Plan of Treatment Health Maintenance Due Date Last Done Comments Pneumococcal Vaccine: 50+ Ye ars (1 of 2 - PCV) 1977 Colorectal Cancer Screening: Annual FOBT 2007 Colorectal Cancer Screening: Colonoscopy 2007 Colorectal Cancer Screening: Sigmoidoscopy 2007 Influenza Vaccine (Season Ended) 2025 Hepatitis B Vaccine Aged Out No longe r eligible based on patient's age to complete this topic Care Teams Lasting Machine Operator Bed Relationship Specialty Start Date End Date Krishan Cruz MD [address] [place] [address] PCP - General 08/06/20
--- OUTSIDE RECORDS SUMMARY | 2024-11-25 11:40 | XMS_ITS | Encounter Summary ---
Author Organization [facility] Address [address] [place] [address] Care Team Providers Care Ammonia Nitrate Operator Name Role Phone Devi Dang Primary Care Provider Unavail able Gamaliel Rodgers MD Unavailable [phone] Ayaka Garcia NP Unavailable [phone] Krishan Cruz MD Primary Care Provider Unav ailKrishan Saavedra MD Primary Care Provider Binduv ailcharlee Encounter Details Date Type Department Care Team Description 04/07/2022 Hospital Medical Records [address] [place] [address] Social History Tobacco Use Types Packs/Day Years Used Date Smoking Tobacco: Never Smokeless Tobacco: Never Alcohol Use Standard Drinks/Week Comments Yes 6 (1 standard drink = 0.6 oz pur e alcohol) 4-8 drinks daily Sex Assigned at Date Recorded Not on file Job Start Date Occupation Industry Not on file Not on file Not on file documented as of this encounter Plan of Treatment Not on file documented as of this encounter Procedures Procedure Name Priority Date/Time Associated Diagnosis Comments OUTSIDE PLAIN FILM Routine 04/07/2022 OUTSIDE LAB Routine 04/07/2022 documented in this encounter Results * OUTSIDE PLAIN FILM (04/07/2022) Provider Abstract RADIOLOGY * OUTSIDE LAB (04/07/2022) Provider Abstract LAB documented in this encounter Visit Diagnoses Not on filedocumented in this encounter Care Teams Ammonia Nitrate Operator Relationship Specialty Start Date End Date Devi Dang PCP - General Internal Medicine 10/22/21 04/13/22 Krishan Cruz MD [address] [place] [address] PCP - General Internal Medicine 04/14/22 03/11/23 Krishan Cruz MD [address] [place] [address] PCP - General Internal Medicine 03/12/23 Gamaliel Rodgers MD [address] [place] [address] Specialist Cardiovascular Disease 10/22/21 Ayaka Garcia, LYN [address] [place] [address] Cardiology 04/10/22 documented as of this encounter
--- OUTSIDE RECORDS SUMMARY | 2024-11-25 11:40 | XMS_ITS | Encounter Summary ---
Author Organization [facility] Address [address] [place] [address] Care Team Providers Care Dietary Cook Name Role Phone Gamaliel Rodgers MD Unavailable [phone] Ayaka Garcia NP Unavailable [phone] Krishan Cruz MD Primary Care Provider Unav ailable Krishan Cruz MD Primary Care Provider Unav ailable Encounter Details Date Type Department Care Team Description 02/04/2023 Hospital Medical Records [address] [place] [address] Social History Tobacco Use Types Packs/Day Years [...] Name Priority Date/Time Associated Diagnosis Comments OUTSIDE EKG Routine 02/04/2023 OUTSIDE PLAIN FILM Routine 02/04/2023 OUTSIDE LAB Routine 02/04/2023 documented in this encounter Results * OUTSIDE PLAIN FILM (02/04/2023) Provider Default RADIOLOGY * OUTSIDE LAB (02/04/2023) Provider Default LAB * OUTSIDE EKG (02/04/2023) Provider Default CARDIOLOGY documented in this encounter Visit Diagnoses Not on filedocumented in this encounter Care Teams Dietary Cook Relationship Specialty Start Date End Date Krishan Cruz MD [address] [place] [address] PCP - General Internal Medicine 04/14/22 03/11/23 Krishan Cruz MD [address] [place] [address] PCP - General Internal Medicine 03/12/23 Gamaliel Rodgers MD [address] [place] [address] Specialist Cardiovascular Disease 10/22/21 Ayaka Garcia, LYN [address] [place] [address] Cardiology 04/10/22 documented as of this encounter
--- OUTSIDE RECORDS SUMMARY | 2024-11-25 11:40 | XMS_ITS | Encounter Summary ---
Author Organization [facility] Address [address] [place] [address] Care Team Providers Care Drafting Supervisor Name Role Phone Krishan Cruz MD Primary Care Provider Devi Dwyer Primary Care Provider Unavail able Gamaliel Rodgers MD Unavailable [phone] Ayaka Garcia JOURNEYMAN PAINTER Unavailable [phone] Krishan Cruz MD Primary Care Provider Krishan Howell MD Primary Care Provider Renzo espinoza Encounter Details Date Type Department Care Team Description 08/19/2021 Hospital Medical Records [address] [place] [address] Social History Tobacco Use Types Packs/Day Years [...] on filedocumented in this encounter Care Teams Drafting Supervisor Relationship Specialty Start Date End Date Krishan Cruz MD PCP - General Internal Medicine 01/15/18 10/21/21 Devi Dang PCP - General Internal Medicine 10/22/21 04/13/22 Krishan Cruz MD PCP - General Internal Medicine 04/14/22 03/11/23 Krishan Cruz MD [address] [place] [address] PCP - General Internal Medicine 03/12/23 Gamaliel Rodgers MD [address] [place] [address] Specialist Cardiovascular Disease 10/22/21 Ayaka Garcia NP [address] [place] [address] Cardiology 04/10/22 documented as of this encounter
--- OUTSIDE RECORDS SUMMARY | 2024-11-25 11:40 | XMS_ITS | Encounter Summary ---
Author Organization [facility] Address [address] [place] [address] Care Team Providers Care Chainman Name Role Phone Devi Dang Primary Care Provider Unavail able Gamaliel Rodgers MD Unavailable [phone] Ayaka Garcia DIALS INSPECTOR Unavailable [phone] Krishan Cruz MD Primary Care Provider Unav ailable Krishan Cruz MD Primary Care Provider Unav ailable Encounter Details Date Type Department Care Team Description 04/07/2022 SCAN Medical Records [address] [place] [address] Abstract, Provider Social History Tobacco Use Types [...] Diagnosis Comments OUTSIDE PLAIN FILM Routine 04/07/2022 documented in this encounter Results * OUTSIDE PLAIN FILM (04/07/2022) Provider Default RADIOLOGY documented in this encounter Visit Diagnoses Not on filedocumented in this encounter Care Teams Chainman Relationship Specialty Start Date End Date Devi Dang PCP - General Internal Medicine 10/22/21 04/13/22 Krishan Cruz MD [address] [facility] [address] [place] [address] PCP - General Internal Medicine 04/14/22 03/11/23 Krishan Cruz MD [address] [place] [address] PCP - General Internal Medicine 03/12/23 Gamaliel Rodgers MD [address] [place] [address] Specialist Cardiovascular Disease 10/22/21 Ayaka Garcia NP [address] [place] [id number] Cardiology 04/10/22 documented as of this encounter
--- OUTSIDE RECORDS SUMMARY | 2024-11-25 11:40 | XMS_ITS | Encounter Summary ---
Author Organization [facility] Address [address] [place] [address] Care Team Providers Care Test Skein Winder Name Role Phone Krishan Cruz MD Primary Care Provider Devi Dwyer Primary Care Provider Unavail able Gamaliel Rodgers MD Unavailable [phone] Ayaka Garcia EXCHANGE ENGINEER Unavailable [phone] Krishan Cruz MD Primary Care Provider Krishan Howell MD Primary Care Provider Renzo espinoza Encounter Details Date Type Department Care Team Description 02/27/2020 Hand Violin Maker Report Medical Records [address] [place] [address] Gamaliel Rodgers MD [address] [place] [address] Social History Tobacco Use Types Packs/Day Years [...] on filedocumented in this encounter Care Teams Test Skein Winder Relationship Specialty Start Date End Date Krishan Cruz MD PCP - General Internal Medicine 01/15/18 10/21/21 Devi Dang PCP - General Internal Medicine 10/22/21 04/13/22 Krishan Cruz MD PCP - General Internal Medicine 04/14/22 03/11/23 Krishan Cruz MD [address] [place] [address] PCP - General Internal Medicine 03/12/23 Gamaleil Rodgers MD [address] [place] [address] Specialist Cardiovascular Disease 10/22/21 Ayaka Garcia NP [address] [place] [address] Cardiology 04/10/22 documented as of this encounter
--- OUTSIDE RECORDS SUMMARY | 2024-11-25 11:40 | XMS_ITS | Clinical Summary ---
Author Organization [facility] Address [address] [address] Phone Care Team Providers Care Front Counter Clerk Name Role Phone Krishan Cruz MD Primary Care Provider [phone] Allergies Active Allergy Reactions Criticality Noted Date Comments Meperidine 04/14/2022 Medications metoprolol tartrate (LOPRESSOR) 25 mg tablet Take 1 tablet (25 mg total) by mouth 2 (two) times a day. 05/02/2024 Active amLODIPine-katt zepril (LOTREL) 5-20 mg per capsule Take 1 capsule by mouth 1 (one) time each day. Active apixaban (ELIQUIS) 5 mg tablet Take 1 tablet (5 mg total) by mouth 2 (two) times a day. Active fluticasone furoate-vilante roL (Breo Ellipta) 200-25 mcg/dose inhaler Inhale 1 puff by mouth 1 (one) time each day. 02/10/2019 Active umeclidinium (Incruse Ellipta) 62.5 mcg/actuation inhalation Inhale 1 Puff into the lungs daily. 12/06/2018 Active Active Problems Problem Noted Date Diagnosed Date Aortic aneurysm (CMS/HCC V24) 03/13/2023 Overview (07/14/2024): Last Assessment & Plan: Mildly dilated ascending aorta of 3.9 cm. We will update echocardiogram in March 2023. Discussed the importance of blood pressure control. Hypersomnia 03/13/2023 Overview (07/14/2024): Last Assessment & Plan: Will order sleep study. We discussed this being a trigger for atrial fibrillation. Dysrhythmia 03/10/2023 Dehydration 03/10/2023 PVC (premature ventricular contraction) 04/14/20 Atrial fibrillation with RVR ([facility] V24, [facility] V28) 04/14/2022 Paroxysmal atrial fibrillation ([facility] V24, [facility] V28) 04/08/2022 Overview (07/14/2024): Last Assessment & Plan: He remains in sinus rhythm on exam. He will continue rate control with metoprolol. We did discuss risks and benefits of anticoagulation at length. I did inform him if he had another fall and he hit his head he should seek urgent medical attention to evaluate for bleeding. We did discuss the importance of this. He verbalized understanding agrees to continue. We discussed the importance of cutting back on his alcohol intake however he is not interested at this time. Essential hypertension 04/08/2022 Overview (07/14/2024): Last Assessment & Plan: 130/80 in office today, well-controlled on current medications. Continue Lotrel and Lopressor. Follicular lymphoma ([facility] V24, [facility] V28) 0 12/14/2019 COPD (chronic obstructive pu lmonary disease) ([facility] V24, [facility] V28) 03/08/2018 Simple chronic bronchitis ([facility] V24, [facility] V28) 01/15/2018 Asthma 12/23/2016 Obstructive sleep apnea syndrome 10/21/2016 Encounters Date Type Department Care Team Description 09/28/2024 Telephone [facility] [address] [address] [facility] [address] [place] [address] Cecil Almonte MD No Call No Show (Letter sent) from Last 3 Months Surgical History Surgery Date Site/Laterality Comments OTHER SURGICAL HISTORY PROCEDURE:adenopathy of the right groin HERNIA REPAIR 1989 PROCEDURE:HERNIA REPAIR COLONOSCOPY 2014 PROCEDURE:COLONOSCOPY;COMMENT:fernandes s had 2 so far- Dr Mares UPPER GASTROINTESTINAL ENDOSCOPY 2014 PROCEDURE:UPPER GASTROINTESTINAL ENDOSCOPY;COMMENT:to rule out celiac spru Medical History Medical History Date Comments COPD (chronic obstructive pu lmonary disease) ([facility] V24, [facility] V28) 03/08/2018 DX:COPD (chronic o bstructive pulmonary disease) ([facility]) Asthma 12/23/2016 DX:Asthma Obstructive sleep apnea syndrome 10/21/2016 DX:Obstructive sleep apnea syndrome Simple chronic bronchitis ([facility] V24, [facility] V28) 01/15/2018 DX:Simple chronic bronchitis (HCC) Class 1 obesity DX:Class 1 obesi ty DVT of upper extremity (deep vein thrombosis) ([facility] V24, [facility] V28) 2014 DX:DVT of upper extremity (deep vein thrombosis) ([facility]) Lymphoma ([facility] V24, [facility] V28) DX:Lymphoma ([facility]) Hypertension DX:Hypertension COPD (chronic obstructive pu lmonary disease) ([facility] V24, [facility] V28) DX:COPD (chronic o bstructive pulmonary disease) ([facility]) Vertigo DX:Vertigo Celiac disease DX:Celiac disease;COMMENT:Questionable history, remains on a gluten free diet Diffuse follicle center lymp amry ([facility] V24, [facility] V28) 09/23/2017 DX:Diffuse follicle center lymphoma ([facility]) Family History Medical History Relation Name Comments Cancer Brother 1 skin- squamus c ell ca - face No Known Problems Brother 2 No Known Problems Brother 3 No Known Problems Daughter Cancer Father brain tumor- di ed from it Other: Brain tumor Father Cancer Maternal Grandmother hodgkin lymphoma - from it Other: Brain tumor Maternal Grandmother Hypertension Mother No Known Problems Mother Cancer Paternal Grandmother brain t umor No Known Problems Sister No Known Problems Son Relation Name Status Comments Brother 1 [...] on file Sexual Orientation Not on file Obstetrics History Last Filed Vital Signs Vital Sign Reading [...] 04/26/2024 10:01 AM EDT Plan of Treatment Upcoming Encounters Date Type Department Care Team (Late st Contact Info) Description 03/28/2025 10:20 AM EDT Office Visit [facility] Cardiology [address] [place] [id number] Cecil Almonte MD [address] [place] [address] [address]IVE,[facility] [address] [place] [address] 04/26/2025 9:45 AM EDT Office Visit [facility] Hematology Oncology [address] [place] [phone] Radha Yap MD [address] [place] [phone] Health Maintenance Due Date Last Done Comments Hepatitis A Vaccines (1 of 2 - Risk 2-dose series) 1977 Pneumococcal Vaccine: 50+ Years (1 of 2 - PCV) 1977 Zoster Vaccines (1 of 2) 1977 RSV Immunization Adult Patients (1 - Risk 60-74 years 1-dose series) 2018 COVID-19 Vaccine (3 - Pfizer risk series) 12/26/2020 11/28/2020, 11/06/2020 Cholesterol Screening (Lipid Panel) 07/03/2022 Colorectal Cancer Screening: Colonoscopy 07/03/2022 Depression Screening 07/03/2022 Hepatitis C Screening 07/03/2022 Medicare Annual Wellness Visit 07/03/2022 Social Influencers of Health Screening 07/03/2022 Hypertension/CHF/CAD Annual BMP Blood Test 07/06/2022 Falls Risk Assessment 2023 Influenza Vaccine (Season Ended) 2025 DTaP,Tdap,and Td Vaccines (3 - Td or Tdap) 04/30/2029 04/30/2019, 03/16/2017 HIB Vaccines Aged Out No longer eligi ble based on patient's age to complete this topic HPV Vaccines Aged Out No longer eligi ble based on patient's age to complete this topic Hepatitis B Vaccines Aged Out No long er eligible based on patient's age to complete this topic IPV Vaccines Aged Out No longer eligi ble based on patient's age to complete this topic MMR Vaccines Aged Out No longer eligi ble based on patient's age to complete this topic Meningococcal ACWY Vaccine Aged Out N o longer eligible based on patient's age to complete this topic Meningococcal B Vaccine Aged Out No l onger eligible based on patient's age to complete this topic RSV Immunization Patients Under 20 months Aged Out No longer eligible b ased on patient's age to complete this topic Varicella Vaccines Aged Out No longer eligible based on patient's age to complete this topic Insurance [employer] MEDICARE ADVANTAGE Care Teams Front Counter Clerk Relationship Specialty Start Date End Date Krishan Cruz MD PCP - General Internal Medicine 04/14/22
--- OUTSIDE RECORDS SUMMARY | 2024-11-25 11:40 | XMS_ITS | Encounter Summary ---
Author Organization [facility] Address [address] [place] [address] Care Team Providers Care Scratcher Name Role Phone Krishan Cruz MD Primary Care Provider Devi Dwyer Primary Care Provider Unavail able Gamaliel Rodgers MD Unavailable [phone] Ayaka Garcia COOK RELIEF Unavailable [phone] Krishan Cruz MD Primary Care Provider Krishan Howell MD Primary Care Provider Renzo espinoza Encounter Details Date Type Department Care Team Description 12/06/2018 [facility] Pulmonology [address] [place] [address] Porfirio Zapata MD Social History Tobacco Use Types Packs/Day Years [...] on filedocumented in this encounter Care Teams Scratcher Relationship Specialty Start Date End Date Krishan Cruz MD PCP - General Internal Medicine 01/15/18 10/21/21 Devi Dang PCP - General Internal Medicine 10/22/21 04/13/22 Krishan Cruz MD PCP - General Internal Medicine 04/14/22 03/11/23 Krishan Cruz MD [address] [place] [address] PCP - General Internal Medicine 03/12/23 Gamaliel Rodgers MD [address] [place] [address] Specialist Cardiovascular Disease 10/22/21 Ayaka Garcia NP [address] [place] [address] Cardiology 04/10/22 documented as of this encounter
--- OUTSIDE RECORDS SUMMARY | 2024-11-25 11:40 | XMS_ITS | Encounter Summary ---
Author Organization [facility] Address [address] [place] [address] Care Team Providers Care Informaticist Name Role Phone Krishan Cruz MD Primary Care Provider Unav ailDevi Lobo Primary Care Provider Unavail able Gamaliel Rodgers MD Unavailable [phone] Ayaka Garcia SUPERVISOR AIRPLANE FLIGHT ATTENDANT Unavailable [phone] Krishan Cruz MD Primary Care Provider Unav ailable Krishan Cruz MD Primary Care Provider Unav ailcharlee Reason for Visit * Reason Comments E-prescribe Rx Request Encounter Details Date Type Department Care Team Description 09/23/2018 Refill Pulmonology - [address] [place] [address] Porfirio Zapata MD E-prescribe Rx Request Social History Tobacco Use Types Packs/Day Years [...] encounter Miscellaneous Notes * Telephone Encounter - Supriya KalliShivaNash - 09/24/2018 8:37 AM EST Patient would like script to be: E-PRESCRIBED/FAXED TO PHARMACY WHEN WAS THE PATIENT'S LAST APPOINTMENT WITH THE PRESCRIBING PROVIDER? 01/15/2018 Does patient have an upcoming appointment? (THE MEDICATION REQUESTED IS ON THE MED LIST ABOVE) All of the medications requested were on the CURRENT MEDS list Did you check the Pharmacy information above?: YES Patient wants: 30 -day supply Is this a mail order prescription request ? NO Patients current insurance carrier is: Payor: [employer] / Plan: [employer] / Product Type: MEDICAID RISK documented in this encounter Plan of Treatment Not on file documented as of this encounter Visit Diagnoses Not on filedocumented in this encounter Care Teams Informaticist Relationship Specialty Start Date End Date Krishan Cruz MD PCP - General Internal Medicine 01/15/18 10/21/21 Devi Dang PCP - General Internal Medicine 10/22/21 04/13/22 Krishan Cruz MD PCP - General Internal Medicine 04/14/22 03/11/23 Krishan Cruz MD [address] [place] [address] PCP - General Internal Medicine 03/12/23 Gamaliel Rodgers MD [address] [place] [address] Specialist Cardiovascular Disease 10/22/21 Ayaka Garcia NP [address] [place] [address] Cardiology 04/10/22 documented as of this encounter
--- OUTSIDE RECORDS SUMMARY | 2024-11-25 11:40 | XMS_ITS | Encounter Summary ---
Author Organization [facility] Address [address] [place] [address] Care Team Providers Care Living Nurse Name Role Phone Krishan Cruz MD Primary Care Provider Unav ailable Devi Dang Primary Care Provider Unavail able Gamaliel Rodgers MD Unavailable [phone] Ayaka Garcia SKEWER UP Unavailable [phone] Krishan Cruz MD Primary Care Provider Unav ailable Krishan Cruz MD Primary Care Provider Unav ailcharlee Reason for Visit * Reason Comments E-prescribe Rx Request Encounter Details Date Type Department Care Team Description 02/10/2019 Refill Pulmonology - [address] [place] [address] Porfirio Zapata MD E-prescribe Rx [...] encounter Miscellaneous Notes * Telephone Encounter - Alee Traylor - 02/10/2019 3:10 PM EDT Patient would like script to be: E-PRESCRIBED/FAXED TO PHARMACY WHEN WAS THE PATIENT'S LAST APPOINTMENT IN ADULT MEDICINE? 12/06/2018 WHEN WAS THE LAST TIME THE PATIENT SAW THEIR PCP? Same as above Does patient have an upcoming appointment? [facility] to refill request. Appt due 06/08/2019 (THE MEDICATION REQUESTED IS ON THE MED LIST ABOVE) All of the medications requested were on the CURRENT MEDS list Did you check the Pharmacy information above?: YES Patient wants: 30 -day supply Is this a mail order prescription request ? NO If the refill is from a FAXED refill request what is the RX # listed on the fax? N/A Patients current insurance carrier is: Payor: [employer] [facility] [employer] / Plan: [employer] TYPE III $15/$22 / Product Type: SOAK (Smart [employer]ational [employer] toolKit)O [id number] documented in this encounter Plan of Treatment Not on file documented as of this encounter Visit Diagnoses Not on filedocumented in this encounter Care Teams Living Nurse Relationship Specialty Start Date End Date Krishan Cruz MD PCP - General Internal Medicine 01/15/18 10/21/21 Devi Dang PCP - General Internal Medicine 10/22/21 04/13/22 Krishan Cruz MD PCP - General Internal Medicine 04/14/22 03/11/23 Krishan Cruz MD [address] [place] [address] PCP - General Internal Medicine 03/12/23 Gamaliel Rodgers MD [address] [place] [address] Specialist Cardiovascular Disease 10/22/21 Ayaka Garcia NP [address] [place] [address] Cardiology 04/10/22 documented as of this encounter
--- OUTSIDE RECORDS SUMMARY | 2024-11-25 11:40 | XMS_ITS | Encounter Summary ---
Author Organization [facility] Address [address] [place] [address] Care Team Providers Care Mammalogist Name Role Phone Devi Dang Primary Care Provider Unavail able Gamaliel Rodgers MD Unavailable [phone] Ayaka Garcia RHEUMATOLOGIST Unavailable [phone] Krishan Cruz MD Primary Care Provider Unav ailable Krishan Cruz MD Primary Care Provider Unav ailable Encounter Details Date Type Department Care Team Description 04/09/2022 SCAN Medical Records [address] [place] [address] Abstract, Provider Social History Tobacco Use Types [...] Date/Time Associated Diagnosis Comments OUTSIDE EKG Routine 04/09/2022 documented in this encounter Results * OUTSIDE EKG (04/09/2022) Provider Default CARDIOLOGY documented in this encounter Visit Diagnoses Not on filedocumented in this encounter Care Teams Mammalogist Relationship Specialty Start Date End Date Devi Dang PCP - General Internal Medicine 10/22/21 04/13/22 Krishan Cruz MD [address] [facility] [address] [place] [address] PCP - General Internal Medicine 04/14/22 03/11/23 Krishan Cruz MD [address] [place] [address] PCP - General Internal Medicine 03/12/23 Gamaliel Rodgers MD [address] [place] [address] Specialist Cardiovascular Disease 10/22/21 Ayaka Garcia NP [address] [place] [id number] Cardiology 04/10/22 documented as of this encounter
--- OUTSIDE RECORDS SUMMARY | 2024-11-25 11:40 | XMS_ITS | Encounter Summary ---
Author Organization [facility] Address [address] [place] [address] Care Team Providers Care Cv Tech Name Role Phone Krishan Cruz MD Primary Care Provider Devi Dwyer Primary Care Provider Unavail able Gamaliel Rodgers MD Unavailable [phone] Ayaka Garcia PRINCIPAL SCIENTIST Unavailable [phone] Krishan Cruz MD Primary Care Provider Krishan Howell MD Primary Care Provider Renoz espinoza Encounter Details Date Type Department Care Team Description 10/17/2021 Orders Only Cardio PVC POC [address] [facility] [address] [place] [address] Default, Provider Social History Tobacco Use Types Packs/Day [...] Date/Time Associated Diagnosis Comments OUTSIDE LAB Routine 08/20/2021 documented in this encounter Results * OUTSIDE LAB (08/20/2021) Provider Default LAB documented in this encounter Visit Diagnoses Not on filedocumented in this encounter Care Teams Cv Tech Relationship Specialty Start Date End Date Krishan Cruz MD PCP - General Internal Medicine 01/15/18 10/21/21 Devi Dang PCP - General Internal Medicine 10/22/21 04/13/22 Krishan Cruz MD PCP - General Internal Medicine 04/14/22 03/11/23 Krishan Cruz MD [address] [place] [address] PCP - General Internal Medicine 03/12/23 Gamaliel Rodgers MD [address] [place] [address] Specialist Cardiovascular Disease 10/22/21 Ayaka Garcia, LYN [address] [place] [address] Cardiology 04/10/22 documented as of this encounter
== END 2024-11-25 11:24 | disposition home or self-care (01) ==
LOC: HO.HPS 10:34
PROVIDERS: PCP Internal Medicine; Visit Provider Hospitalist
DX: J44.89 Other specified chronic obstructive pulmonary disease (principal); R06.09 Other forms of dyspnea; Z85.72 Personal history of non-Hodgkin lymphomas; G47.33 Obstructive sleep apnea (adult) (pediatric); I48.91 Unspecified atrial fibrillation
CPT/HCPCS: 99214; G2211

== ENCOUNTER → 2024-11-25 10:34 | Outpatient (BNVA) | payer OTHER, SELFPAY | PROVIDERS: PCP Internal Medicine; Visit Provider Hospitalist ==

== ENCOUNTER 2025-03-28 14:17 | Outpatient (AMB) | payer OTHER, SELFPAY ==
--- OUTSIDE RECORDS SUMMARY | 2024-04-26 09:54 | XMS_ITS | Encounter Summary ---
Author Organization [facility] Address [address] [place] [address] Care Team Providers Care Hearing Specialist Name Role Phone Krishan Cruz MD Primary Care Provider + [phone] Encounter Details Date Type Department Care Team (Late st Contact Info) Description 04/26/2024 9:54 AM EDT Hospital Encounter TH HISTORIC ENCOUNTERS EASTERN CONVERSION ONLY Radha Yap MD [address] [place] [id number] Social History Tobacco Use Types Packs/Day Years Used Date Smoking Tobacco: Never Smokeless Tobacco: Never Alcohol Use Standard Drinks/Week Comments Yes 6 (1 standard drink = 0.6 oz pur e alcohol) Sex and Gender Information Value Date Recorded Sex Assigned at Not on file Legal Sex Male 6:07 PM EST Gender Identity Not on file Sexual Orientation Not on file documented as of this encounter Last Filed Vital Signs Vital Sign Reading Time Taken Comments Blood Pressure 143/74 04/26/2024 10:01 AM EDT Sitting Left arm Pulse 65 04/26/2024 10:01 AM EDT Temperature - - Respiratory Rate - - Oxygen Saturation - - Inhaled Oxygen Concentration - - Weight 94.1 kg (207 lb 6.4 oz) 04/26/2024 10:01 AM EDT Height 177.8 cm (5' 10 ) 04/26/2024 10: 01 AM EDT Body Mass Index 29.76 04/26/2024 10:01 AM EDT documented in this encounter Progress Notes * Radha Yap MD - 04/26/2024 9:45 AM EDT Images from the original note were not included. Progress Notes by Radha Hamilton MD at 04/26/2024 9:45 AM Author: Radha Hamilton MD Service: -- Author Type: Physician Filed: 04/26/2024 10:28 AM Encounter Date: 04/26/2024 Status: Signed Occupational Health Physician: Radha Hamilton MD (Physician) CHIEF COMPLAINT: Chief Complaint Patient presents with ? Follow-up Follicular lymphoma, stage I IDENTIFIER:Daniele Wynn is a 64 y.o. male. HPI: The patient returns for follow up of stage I follicular lymphoma - in 2018 Previously treated with local radiation therapy, to the right inguinal area Patient comes in for follow-up. He was seen in clinic about 9 months previously. Patient reports that he has been doing over the last year fairly well but for left knee pain. He developed a meniscal tear. He had a arthroscopy performed. Swelling and pain and gait instability, leading to multiple falls. He has lost weight by changing his diet. He developed BPH symptoms, currently on medication for it. He also feels that right axillary lymph node is persistent, no enlargement. No new lymphadenopathy in the cervical or inguinal area. Lab work reviewed from January, at PCP office visit, next follow-up and lab work is at 6 months The following is copied, reviewed and edited Cancer Staging No matching staging information was found for the patient. Oncology History Overview Note Patient noticed right groin lymphadenopathy. Excision biopsy performed on 08/19/2017 Pathology report from 08/21/2017: Follicular lymphoma, follicular pattern, grade 38-5-10%-grade 1-2of 3. Comment: It is noted that large compared cell comprises on average more than 15 per high-power field and her arrange mainly at the periphery of the follicles while in other areas of large lymphoid cells comprise less than 15 per high- power field. Grade 3 lymphoma component comprised approximately 5-10%. Because flow cytometry study showed a nonspecific immunophenotype, immunohistochemical stains were performed. Majority of lymphocytes are positive for B cell antigens CD20 as well as for BCL-6 and CD10 and showed overexpression for BCL-2 protein 8 CD21 CD30 highlighted follicular dendritic cell meshwork associated with the follicles. Lymphocytes negative for cyclin D1. Cell proliferation antigen and ID 13 be positive comprising approximately 42. CA 50% in some follicles and 10-15% of cells and other lymphoid features. PET/CT: Mild SUV only in the right groin region combination of postoperative and residual lymphoma. CBC normal. No focal protein. LDH normal beta-2 microglobulin normal. 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 He received radiation to right groin for localized grade 3 follicularlymphoma he tolerated this without currently asymptomatic. ?? Shotty small lymph nodes in the left groin. We will continue to monitor. ?? CBC CMP LDH normal. No anemia or other CBC abnormalities. ?? Brother was recently diagnosed with glioblastoma-genetic counseling was advised by his brothers oncologist. I will make a referral to [facility] as this might be easier for him. ?? I have counseled the patient on remaining compliant with monitoring and surveillance. He has also been counseled on on possible signs and symptoms of recurrence of lymphoma such as lymphadenopathy night sweats fevers involuntary weight loss fatigue etc and has been asked to contact our office rightaway if any such symptoms should occur otherwise will keep his follow-up appointment in 6 months I would like to repeat labs today and again before the next visit.. ?? I have explained that follicular lymphoma is not a curable disease however we could expect assisted remission given his limited disease. We will monitor clinically for any evidence of recurrence andobtain directed imaging and biopsies as necessary. 02/2021-- The patient was previously following with Dr. Bennett and this is his first visit with me, since she moved practice. He reports that he is feeling under a bit of stress, related to his work. He has gradually gained weight. He denies any fevers chills, or night sweats. He has not felt any new areas of lymph node swelling. He does have a scar type area along his right groin, and also a small lymph node that he occasionally feels in the left groin. Patient is detailed prior history is reviewed below,. He was initially diagnosed in early 2018, with an excisional biopsy of the right groin lymphadenopathy, that reported as follicular lymphoma, grade 1 through 2 of 3. After complete staging with a PET CT scan, that did not reveal any other areas of disease, patient underwent curative intent radiation therapy to the right groin that he completedin October 2017. Thereafter he has continued on clinical and imaging surveillance. 08/2020- Patient was seen in clinic about 6 months previously. He reports that he has been feeling well. He has gained some weight, being laid off. He remains fairly active. He denies any new areas of pain. No night sweats. He has not noticed any areas of lymph node enlargement. He had restage imaging performed May. He also had lab work performed, here to review results 02/2021-- Patient reports that he has done well over the last 6 months. He has gained some weight. No furtherER visits or hospitalizations. He has not felt any new areas of lymph node swelling. Denies any chills, fevers or night sweats. No unintentional weight loss He had lab work performed in early February per his PCP this is reviewed, showed mild anemia 03/2022 - Patient reports that he has been feeling well over the last 6 months. He has not noticed any new lymphadenopathy. He denies any episodes of fevers or drenching night sweats. He remains active, working in the [employer] business. He has gained some weight over the last few months. Lab work is reviewed from PCP office. He may switch to annual follow-up at this point. Lab work is reviewed from 03/26. Mild anemia is noted. Renal function is normal so also liver function. IgG is in the normal range as well, no need for replacement. - however new right-sided axillary adenopathy is concerning for disease progression Continues on clinical surveillance, Currently clinical examination is benign but has developed axillary lymphadenopathy --no other organomegaly, reassuring Patient underwent ultrasound of the right axilla-showed benign and lymph node only Thereafter he had an acute visit 6 weeks ago. Right axillary lymph node was palpated. He had ultrasound that showed the lymph node with benign features. Thereafter he called again with left inguinal lymphadenopathy. A PET CT scan was requested. After a peer to peer discussion, the insurance approved the PET scan. He had the imaging and is here for follow-up. No significant activity noted in the PET CT scan. Copy reviewed with the patient and reassured. Hehas in fact gained some weight. He has not noticed any new lymph nodes. He denies any unexplained weight loss or drenching night sweats. He has a follow-up with his PCP in the next 6 months ROS: GENERAL: No malaise, significant weight loss or fever Stable weight NECK: No lumps, goiter, pain or significant neck swelling RESPIRATORY: No cough, wheezing or shortness of breath CARDIOVASCULAR: No chest pain, leg swelling or palpitations GI: No abdominal discomfort, blood in stools or black stools MUSCULOSKELETAL: No joint pain or swelling, back pain, or muscle pain. HEMATOLOGY/LYMPHOLOGY No prolonged bleeding, easy bruisability or swollen nodes Other Systems review is non contributory PAST MEDICAL HISTORY: Active Ambulatory Problems Diagnosis Date Noted ? 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 Asthma 12/23/2016 ? COPD (chronic obstructive pulmonary disease) ([facility]) 03/08/2018 ? Obstructive sleep apnea syndrome 10/21/2016 ? Simple chronic bronchitis ([facility]) 01/15/2018 ? Hot flashes 08/13/2022 ? Paroxysmal atrial fibrillation (HCC) 08/13/2022 ? Axillary lymphadenopathy 04/06/2023 ? Hydrocele, left 06/08/2023 Resolved Ambulatory Problems Diagnosis Date Noted ? No Resolved Ambulatory Problems Past Medical History: Diagnosis Date ? Celiac disease ? Hypertension ? Lymphoma (HCC) ? Vertigo SOCIAL HISTORY: Social History Tobacco Use ? Smoking status: Never ? Smokeless tobacco: Never Substance Use Topics ? Alcohol use: Yes Comment: Vodka - 1 pint daily FAMILY HISTORY: Family History Problem Relation Age of Onset ? Cancer Father 66 brain tumor- from it ? Cancer Brother 53 skin- squamus cell ca - face ? No Sig Med Hx Mother ? No Sig Med Hx Sister ? Cancer Maternal Grandmother 70 hodgkin lymphoma - from it ? Cancer Paternal Grandmother 95 brain tumor ? No Sig Med Hx Brother ? No Sig Med Hx Brother ? No Sig Med Hx Son ? No Sig Med Hx Daughter Current Outpatient Medications: ? albuterol (PROVENTIL HFA;VENTOLIN HFA) 108 (90 BASE) MCG/ACT inhaler, Inhale 2 puffs into the lungs every 6 (six) hours as needed., Disp: , Rfl: ? amLODIPine 5 MG TABS 1 tablet, benazepril 20 MG TABS 1 tablet, Take 1 tablet by mouth daily., Disp: , Rfl: ? Eliquis 5 MG TABS tablet, Take 1 tablet (5 mg total) by mouth 2 (two) times a day., Disp: , Rfl: ? Fluticasone Furoate-Vilanterol (BREO ELLIPTA IN), Inhale into the lungs., Disp: , Rfl: ? INCRUSE ELLIPTA 62.5 MCG/INH AEPB, INHALE 1 PUFF PO QD, Disp: , Rfl: 11 ? Multiple Vitamins-Minerals (MULTIVITAMIN ADULT PO), Take 1 tablet by mouth daily., Disp: , Rfl: ? vitamin B-12 (CYANOCOBALAMIN) tablet 1000 mcg, Take 1 tablet (1,000 mcg total) by mouth daily., Disp: , Rfl: ? aspirin 81 MG chewable tablet, Chew 1 tablet (81 mg total) by mouth daily. (Patient not taking: Reported on 04/26/2024), Disp: , Rfl: ? omeprazole (PriLOSEC) 20 MG capsule, Take 2 capsules (40 mg total) by mouth daily. (Patient not taking: Reported on 04/26/2024), Disp: , Rfl: You are allergic to the following Date Reviewed: 03/07/2020 Allergen Reactions Meperidine Not Noted PHYSICAL EXAM: BP 143/74 (BP Location: Left arm) Pulse 65 Temp 97.8 ??F (36.6 ??C) (Temporal) Ht 5' 10 (1.778 m) Wt 94.1 kg (207 lb 6.4 oz) SpO2 100% BMI 29.76 kg/m?? APPEARANCE: Alert and in no acute distress Mild fatigue Stable weight EYES: PERRL, conjunctiva pink and sclera are Normal without icterus ORAL CAVITY: No erythema or exudates NECK: Neck supple, no adenopathy, HEART: RRR with normal S1 and S2, no murmurs, no gallops, no JVD appreciated LUNG: clear to auscultation bilaterally Percussion note normal LYMPH NODES: Right axillary lymphadenopathy about 3 cm ABDOMEN: Bowel sounds normoactive, no bruits, soft, non-tender, without organomegaly or palpable masses EXTREMITIES: Extremities warm and well perfused without clubbing, cyanosis, rash or edema NEURO: Oriented X 3, no focal weakness; sensation is normal LABS: Labs reviewed and interpreted CT Chest W - 02/15/20 - 1528 History: Shortness of breath and chest pain Comparison: Chest CT 08/20/2009; abdomen pelvis CT 08/06/2017 IMPRESSION: No acute disease in the chest. CT Abdomen & Pelvis W Cont - 05/31/20 - 1522 History: Lymphoma follow-up Comparison: 08/06/2017 IMPRESSION: No adenopathy. Chronic hepatic hemangiomas. Chronic left colon diverticulosis. Prostate hypertrophy. Degenerative disk changes are noted in the spine. US Extremity Nonvasc Ltd - 04/13/23 - Report Status:Signed HISTORY: The patient is a 62-year-old male with provided history of right axillary lymphadenopathy.Information provided with prior studies indicates that the patient has a history of lymphoma. FINDINGS: Real-time ultrasonography of the right axilla is performed. The study demonstrates a single 2.3 x 1.3 x 1.9 cm hypoechoic mass with a hyperechoic central area, characteristic of a benign lymph node. No suspicious mass or other concerning abnormality is seen. IMPRESSION: There is a single, 2.3 x 1.3 x 1.9 cm lymph node with characteristically benign appearance. No suspicious abnormality is seen. PET CT Skull to Thighs - 05/26/23 - Report Status:Signed INDICATION: RESTAGING DIFFUSE FOLLICLE CENTER LYMPHOMA history of stage I follicular lymphoma treated with radiation therapy to the right inguinal region. Physical exam demonstrated right axillary lymphadenopathy. Radiopharmaceutical: 10.12 mCi of F-18 FDG IV. Blood glucose: 101 mg/dl. COMPARISON: 2017 FINDINGS: SUV Max: Mediastinal Blood Pool: 3.0 Liver: 4.0 HEAD AND NECK: No abnormal FDG activity. Symmetric activity in the lingual tonsils likely is physiologic with SUV max 3.7 on the right and 3.1 on the left. THORAX: No abnormal FDG activity. No enlarged axillary lymphadenopathy. No focal area of increased FDG activity in the bilateral nonenlarged axillary lymph nodes with SUV max 1.2 on the left and right. ABDOMEN/PELVIS: No abnormal FDG activity. Nonenlarged retroperitoneal and external iliac lymph nodes without significant FDG activity (SUV max 1.4 and 1.9, respectively). Previously seen metabolic activity in the right groin is no longer identified. Nonenlarged bilateral groin lymph nodes with SUV max 1.0 on the left and 1.4 on the right. MUSCULOSKELETAL: No abnormal FDG activity. Focal area of asymmetric activity in the right common hamstring origin tendon with SUV max 4.6 (2.2 on the left) which may represent tendinosis. IMPRESSION: Deauville 2. No significant metabolic activity to suggest recurrence/active disease. 5-point Deauville Score Silva: 1. No uptake 2. Uptake less than or equal to mediastinal blood pool IMPRESSION: SNOMED CT(R) 1. Diffuse follicle center lymphoma of lymph nodes of lower extremity (HCC) DIFFUSE FOLLICLE CENTERLYMPHOMA 2. Simple chronic bronchitis (HCC) SIMPLE CHRONIC BRONCHITIS 3. Paroxysmal atrial fibrillation (HCC) PAROXYSMAL ATRIAL FIBRILLATION 4. Axillary lymphadenopathy AXILLARY LYMPHADENOPATHY PLAN: 64-year-old gentleman with history of follicular lymphoma, grade 1/2, completed curative intent therapy #1 follicular lymphoma, grade 1-2 out of 3, diagnosed in early 2017, completed curative intent radiation treatment in October 2017 Nearly 7 years since treatment I reviewed the restaging imaging, from 2019 CAT scan of the abdomen and pelvis with contrast to from May 2020--no obvious lymphadenopathy Will continue on clinical surveillance f with annual visits, hold off imaging unless any symptomatic progression Recent imaging axillary ultrasound, and PET CT scan reviewed in detail and a copy provided Labs from February, IgG level is normal, may check annually no clinical evidence of immunodeficiency at this time #2 chronic bronchitis,/emphysema, remained stable over the last year #3 Continued weight gain, --improved, he has been able to modify his diet, activity and lose some weight #4 alcohol use, counseled, continues #5 BPH-PCP started him on medication Clinic follow-up in 1 year and sooner if new issues arise Patient is in agreement with plan. Pain Control-- no issues Health Care Proxy--none Radha Hamilton MD Cc Krishan Cruz MD documented in this encounter Plan of Treatment Upcoming Encounters Date Type Department Care Team (Late st Contact Info) Description 04/26/2025 9:45 AM EDT Office Visit [facility] Hematology Oncology [address] [place] [phone] Radha Yap MD [address] [place] [id number] documented as of this encounter Visit Diagnoses Not on filedocumented in this encounter Care Teams Hearing Specialist Relationship Specialty Start Date End Date Krishan Cruz MD PCP - General Internal Medicine 04/14/22 03/19/25 documented as of this encounter
--- OUTSIDE RECORDS SUMMARY | 2025-03-25 10:10 | XMS_ITS | Encounter Summary ---
Author Organization [facility] Address [address] [place] [address] Care Team Providers Care Self Sealing Fuel Tank Builder Name Role Phone Krishan Cruz MD Primary Care Provider Encounter Details Date Type Department Care Team (Late st Contact Info) Description 03/25/2025 10:10 AM EDT - 03/25/2025 10:12 AM EDT Emergency [facility] Emergency [address] [place] [phone] Discharge Disposition: ED Dismiss - Diverted Elsewhere Social History Tobacco Use Types Packs/Day Years [...] on file documented as of this encounter Medications at Time of Discharge amLODIPine-benaze pril (LOTREL) 5-20 mg per capsule Take 1 capsule by mouth 1 (one) time each day. apixaban (ELIQUIS) 5 mg tablet Take 1 tablet (5 mg total) by mouth 2 (two) times a day. fluticasone furoate-vilantero L (Breo Ellipta) 200-25 mcg/dose inhaler Inhale 1 puff by mouth 1 (one) time each day. 02/10/2019 metoprolol tartrate (LOPRESSOR) 25 mg tablet Take 1 tablet (25 mg total) by mouth 2 (two) times a day. 05/02/2024 umeclidinium (Incruse Ellipta) 62.5 mcg/actuation inhalation Inhale 1 Puff into the lungs daily. 12/06/2018 documented as of this encounter Discharge Disposition Disposition Code Departure Means Destination Comment s ED Dismiss - Diverted Elsewhere CHECKED IN WRONG, PT IS OUTPATIENT documented in this encounter Plan of Treatment Upcoming Encounters Date Type Department Care Team (Late st Contact Info) Description 04/26/2025 9:45 AM EDT Office Visit [facility] Hematology Oncology [address] [place] [address] Radha Yap MD [address] [place] [address] documented as of this encounter Visit Diagnoses Not on filedocumented in this encounter Care Teams Self Sealing Fuel Tank Builder Relationship Specialty Start Date End Date Krishan Cruz MD [address] [place] [address] PCP - General Internal Medicine 03/20/25 documented as of this encounter
--- OUTSIDE RECORDS SUMMARY | 2025-03-25 10:23 | XMS_ITS | Encounter Summary ---
Author Organization [facility] Address [address] [place] [address] Care Team Providers Care Sports Lawyer Name Role Phone Krishan Cruz MD Primary Care Provider [phone] Reason for Referral * Imaging (Routine) - Authorized Specialty Diagnoses / Procedures Referred By Agnes clement Referred To Contact Radiology Diagnoses Testicular discomfort Procedures US Scrotum and Contents Krishan Cruz MD [address] [place] [address] Phone: tel: fax: [facility] Referral ID Status Reason Start Date Expiration Date V isits Requested Visits Authorized [id number] Authorized 03/16/2025 03/16/2026 1 1 Reason for Visit * Imaging (Routine) - Authorized Specialty Diagnoses / Procedures Referred By Agnes clement Referred To Contact Radiology Diagnoses Testicular discomfort Procedures US Scrotum and Contents Krishan Cruz MD [address] [place] [address] Phone: tel: fax: [facility] Referral ID Status Reason Start Date Expiration Date V isits Requested Visits Authorized [id number] Authorized 03/16/2025 03/16/2026 1 1 Encounter Details Date Type Department Care Team (Latest Contact Info) Description 03/25/2025 10:23 AM EDT - 03/25/2025 11:59 PM EDT Hospital Encounter [facility] Ultrasound [address] [place] [phone] Testicular discomfort Discharge Disposition: Home or Self Care Social History Tobacco Use Types Packs/Day Years [...] Discharge Disposition Disposition Code Departure Means Destination Home or Self Care documented in this encounter Plan of Treatment Upcoming Encounters Date Type Department Care Team (Late st Contact Info) Description 04/26/2025 9:45 AM EDT Office Visit [facility] Hematology Oncology [address] [place] [phone] Radha Yap MD [address] [place] [address] documented as of this encounter Procedures Procedure Name Priority Date/Time Associated Diagnosis Comments US SCROTUM AND CONTENTS Routine 03/25/2025 11:09 AM EDT Testicular discomfort documented in this encounter Results * US Scrotum and Contents (03/25/2025 11:09 AM EDT) Anatomical Region Laterality Modality Body Ultrasound 03/25/2025 12:2 0 PM EDT Impressions 03/25/2025 12:28 PM EDT The area of palpable concern on the left represents an enlarging cyst likely arising from the epididymis which now measures up to 5.7 cm. There are multiple epididymal head cysts or spermatoceles. 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 There is no suspicious solid testicular mass on either side. -------- FINAL REPORT -------- Dictated By: Al Lagunas Dictated Date: 03/25/2025 12:20 ET Assigned Physician: Al Lagunas Reviewed and Electronically Signed By: Al Lagunas Signed Date: 03/25/2025 12:28 ET Workstation ID: [id number] Transcribed By: Self Edit Transcribed Date: 03/25/2025 12:20 ET Narrative 03/25/2025 12:28 PM EDT EXAM: SCROTAL ULTRASOUND HISTORY: Testicular discomfort. Technologist indicates palpable area felt by patient for 10 years. Increasing in size TECHNIQUE: Real-time grayscale evaluation of the scrotum. Color mapping of each testicle. Doppler spectral assessment of each testicle. COMPARISON: Portions of previous 02/08/19 FINDINGS: QUALITY: Adequate RIGHT TESTICLE: No suspicious focal abnormality. The contour is smooth. There are prominent tubular structures extending from the mediastinum testis. This likely represents ectasia of the rete testis. Size: 4.8 x 3.1 x 3.3 cm Right vascularity: Normal Right echogenicity: Homogeneous Right extratesticular: There are cysts or spermatoceles involving the right epididymal head. The largest measures approximately 1.1 cm. Right scrotal fluid: No significant scrotal fluid LEFT TESTICLE: There are cystic and tubular structures emanating from the mediastinum testis. This is likely related to ectasia of the rete testis. The largest individual cystic area measures approximately 0.9 cm. This is similar to previous. No suspicious left testicular mass Size: 4.9 x 2.9 x 3.6 cm Left vascularity: Normal Left echogenicity: Homogeneous Left extratesticular: There are multiple cysts in the left epididymal head region. The largest measures approximately 5.7 cm. On February 12 this measured up to 3.8 cm. Left scrotal fluid: No significant scrotal fluid ADDITIONAL: None Procedure Note Al Lagunas MD - 03/25/2025 EXAM: SCROTAL ULTRASOUND HISTORY: Testicular discomfort. Technologist indicates palpable area feltby patient for 10 years. Increasing in size TECHNIQUE: Real-time grayscale evaluation of the scrotum. Color mapping ofeach testicle. Doppler spectral assessment of each testicle. COMPARISON: Portions of previous 02/08/19 FINDINGS: QUALITY: Adequate RIGHT TESTICLE: No suspicious focal abnormality. The contour is smooth.There are prominent tubular structures extending from the mediastinumtestis. This likely represents ectasia of the rete testis. Size: 4.8 x 3.1 x 3.3 cm Right vascularity: Normal Right echogenicity: Homogeneous Right extratesticular: There are cysts or spermatoceles involving theright epididymal head. The largest measures approximately 1.1 cm. Right scrotal fluid: No significant scrotal fluid LEFT TESTICLE: There are cystic and tubular structures emanating from themediastinum testis. This is likely related to ectasia of the rete testis.The largest individual cystic area measures approximately 0.9 cm. This issimilar to previous. No suspicious left testicular mass Size: 4.9 x 2.9 x 3.6 cm Left vascularity: Normal Left echogenicity: Homogeneous Left extratesticular: There are multiple cysts in the left epididymal headregion. The largest measures approximately 5.7 cm. On February 12 thismeasured up to 3.8 cm. Left scrotal fluid: No significant scrotal fluid ADDITIONAL: None IMPRESSION: The area of palpable concern on the left represents an enlarging cystlikely arising from the epididymis which now measures up to 5.7 cm. There are multiple epididymal head cysts or spermatoceles. 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 There is no suspicious solid testicular mass on either side. -------- FINAL REPORT -------- Dictated By: Al Lagunas Dictated Date: 03/25/2025 12:20 ET Assigned Physician: Al Lagunas Reviewed and Electronically Signed By: Al Lagunas Signed Date: 03/25/2025 12:28 ET Workstation ID: [id number] Transcribed By: Self Edit Transcribed Date: 03/25/2025 12:20 ET us [facility]ED[facility] Final Resu lt documented in this encounter Visit Diagnoses Diagnosis Testicular discomfort documented in this encounter Care Teams Sports Lawyer Relationship Specialty Start Date End Date Krishan Cruz MD [address] [place] [id number] PCP - General Internal Medicine 03/20/25 documented as of this encounter
[2025-03-28 14:19] VITALS: BP 116/56; PULSE 74; O2SAT 95; BMI 30.2
--- NOTE | 2025-03-28 14:19 | A.OFFVIS_ITS ---
Vital Signs 03/28/25 14:19 Height 5 ft 10 in Weight 210 lb 8.663 oz BMI 30.2 BP 116/56 L Blood Pressure Location Lt brachial Position Sitting Pulse 74 Pulse Source Pulse Oximeter Pulse Oximetry (%) 95 Oxygen Delivery Method Room Air Intake Visit Reasons: COPD Mortician Supplies Sales Representative Required: No Accompanied by: Self / Same As Patient Allergies meperidine (From Demerol) Adverse Reaction (Severe, Verified 03/28/25 14:23) Nausea HPI Comments Details: The patient is a 64-year-old gentleman with a known history of obstructive airway disease on Breo and Incruse who was subsequently referred for ongoing dyspnea on exertion. 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 He was treated for this condition and currently being followed closely. He did have a PET scan just recently which we did get the report and reviewed together. Based on the CT PET no abnormalities noted in the thorax or the lungs. Does have not enlarged lymph nodes some with minimal FDG activity. Also some tendinitis otherwise good. He does continue to have dyspnea on exertion [id number] severity. Sometimes is limited by tendinitis that demonstrated on the PET scan. He does not always use his medication. Always concerned about taking too much medication or side effects. He does have Breo and Incruse he was not sure what to do how to taken. Therefore we came up with the protocol for him to use for now. We will in 4 she may benefit from something like Symbicort where he can use as needed with some relief. Will go ahead and request pulmonary function studies to assess his lung capacity at this time. Also, will get a flu shot before he goes home. Will have him come back in the springtime will discuss if we need to change his medications or they are working for him. 11/06/2023 the patient is here for a pulmonary follow-up visit. Overall he is well. He continues uses inhalers. Although he does not using daily. He does not feel like he needs them on a daily basis. He does have Breo and also Incruse. Apparently the Breo is not going to be company longer. He still has plenty since he does not use it daily and will call whenever he runs out. Will send him a generic combination inhaler at that point. He has not had to use his rescue inhaler. He does have history atrial fibrillation so I did mention to him to minimize the use of the rescue inhaler because it can indeed drive his AFib. He does feel the AFib at times. He does feel the palpitations in the regular rhythm. More recently he is noticed that he had been in the AFib. He does have the blood thinners. The patient does also have underlying daytime drowsiness and snoring. He was supposed to have sleep study in the past but for some reason it was never done. His Gem score is elevated 10/24. And was cardiac issues will go ahead and request a home sleep study this time. He may benefit more from an in-lab study but the patient states that he probably not be able sleeping the lab and therefore will go ahead with a home sleep study. No further imaging warranted at this time. Will go ahead and follow-up with him in 3-4 months to review his sleep study. Otherwise he will continue with his current respiratory regimen. 02/16/2024 the patient is here for a pulmonary follow-up visit. The patient overall has been doing well. He is still having daytime drowsiness. His Gem score is elevated 10/24. He was supposed to have a home sleep study but then something came up and he could not have it done and then he has not rescheduled it. Therefore, I did give him the number in order for him to call and have that done specially since he continues to be symptomatic. For respiratory status he does uses inhalers with good effect. He has not had any imaging studies recently but he be following up with the oncologist soon. At this point will continue with the current respiratory therapy and will await the results of the home sleep study. 06/29/2024 the patient is here for pulmonary follow-up visit. Overall she is doing okay. He still complains of congestive cough. Also bothers him at nighttime. Feels like has a postnasal drip that causes the congestion in the chest area. Then he feels like the congestion in the mucus gets stuck in the back of throat and sometimes he needs to feel like he needs to manually remove it. In addition to that he has been having daytime drowsiness. His Gem score is elevated 11/24. He also have cardiovascular risk factors including atrial fibrillation. He did undergo a home sleep study which we personally reviewed. The patient had an AHI of 8 in addition to have a heart rate elevated and also was noted to be hypoxic. Therefore, I do recurrent the patient start CPAP at this time. The patient is also recovering after COVID. After the COVID the patient did develop a productive cough and chest congestion. Therefore will go ahead and treat him from bronchitis postviral. And also will provide him with a nasal spray. 11/25/2024 the patient is here for pulmonary follow-up visit. Overall he is doing okay. He has a hard time tolerating the CPAP. Can not seem to fall asleep with it. He struggles with it. Has not seen any benefit from it as of yet. He is willing to try a sleep aid to see if we can him to fall asleep. He prefers sleeping on his belly and does want his most of the apneic episodes. If she can not tolerate the CPAP be moving the sleep aid he can try positional therapy sleeping with the right side down. I did recommend a positional pillow or symptoms we can continue in the position. In the meantime he has a hard time with his breathing. Has had some chest tightness and wheezing. Initially could not get his medications because of the significant co-pay is in the donut hole. Now he states that after spending serum on my he can get his medications regularly some put him back on Trelegy and can take that daily and should have a rescue inhaler also available. He does have some wheezing on exam. The patient will bring his CPAP to the next visit in 4 months if he has any issues prior to that he will call for an earlier assessment. 03/28/2025 the patient is here for pulmonary follow-up visit. He is still struggling with CPAP. He considering not using any longer. Although he does have a cardiac history in atrial fibrillation therefore there is a benefit. We did look at the sleep study had back initially. He does have mild sleep apnea and some hypoxia. Mainly when he sleeps on his belly and back. If he sleeps on his eyes he does a lot better. The problem is that he gets a lot of discomfort on decides and therefore he ends up sleeping on his belly. The patient would have to avoid sleeping on the belly to try to improve his positional therapy and therefore not need the CPAP. The other option is using a dental appliance. This will give him get from a dentist. Right now he like to try it again. He can try it also during the daytime just to get used to it so he feels more comfortable using it at nighttime. From a respiratory status still has shortness breath with activity. [id number] severity. The Trelegy has been effective and he continues use it. He also has a rescue inhaler that he can you can use as needed. Will follow-up in the springtime if he has any issues prior to this he will call for an earlier assessment. COUNTS INCLUDE 234 BEDS AT THE [facility] Medical History Afib JACKIE (obstructive sleep apnea) History of follicular lymphoma Dyspnea Asthma-COPD overlap syndrome Social History Alcohol intake: current Alcohol intake frequency: 0-2 drinks per day Patient Tobacco Use Status: Never used Tobacco Review of Systems Const Denies chills, Denies fatigue, Denies fever(s), Denies weight gain and Denies weight loss ENT Denies dizziness Card Denies chest pain, Denies leg edema, Denies lightheadedness, Denies palpitations, Reports dyspnea on exertion, Denies orthopnea and Denies other Resp Reports cough and Reports dyspnea on exertion GI Denies hematochezia and Denies change in stool character Musc Denies abnormal gait, Denies muscle weakness, Denies numbness, Denies radiating pain into limb and Denies tingling Neuro Denies abnormal gait, Denies dizziness, Denies numbness and Denies tingling Endo Denies fatigue and Denies palpitations Physical Exam Vital Signs: Last Vital Signs Pulse 74 03/28/25 14:19 BP 116/56 L 03/28/25 14:19 Pulse Ox 95 03/28/25 14:19 Oxygen Delivery Method Room Air 03/28/25 14:19 BMI result Body Mass Index 30.2 Const General: comfortable HEENT Head: Yes normocephalic Neck Neck: Yes supple Chest Chest palpation & inspection: normal inspection of the chest Resp Effort & Inspection: normal respiratory effort Auscultation: diminished lung sounds Cardio Heart sounds: S1 normal heart sound present and S2 normal heart sound present GI Palpation (GI): Soft to palpation Skin General skin exam: no rashes or lesions noted Extrem General: Yes no clubbing, cyanosis or edema Assessment & Plan Assessment & Plan (1) Asthma-COPD overlap syndrome: Code(s): J44.89 - Other specified chronic obstructive pulmonary disease Category: Medical (2) Dyspnea: Code(s): R06.00 - Dyspnea, unspecified Category: Medical Qualifiers: Dyspnea type: dyspnea on exertion Qualified Code(s): R06.09 - Other forms of dyspnea (3) History of follicular lymphoma: Code(s): Z85.72 - Personal history of non-Hodgkin lymphomas Category: Medical (4) JACKIE (obstructive sleep apnea): Code(s): G47.33 - Obstructive sleep apnea (adult) (pediatric) Category: Medical (5) Afib: Code(s): I48.91 - Unspecified atrial fibrillation Category: Medical Qualifiers: Atrial fibrillation type: unspecified Qualified Code(s): I48.91 - Unspecified atrial fibrillation Plan continue Trelegy Ambien as needed for needed ipratropium nasal nasal spray MOISES as needed continue APAP, consider positional therapy (Avoid prone/supine positions) or dental appliance F/U 6-8 months Coding Level of Care Code Est Pt Level 4 (82189) Complex EM visit Add On G2211 Diagnoses Asthma-COPD overlap syndrome J44.89 Dyspnea on exertion R06.09 Dyspnea type: dyspnea on exertion History of follicular lymphoma Z85.72 JACKIE (obstructive sleep apnea) G47.33 Atrial fibrillation, unspecified type I48.91 Atrial fibrillation type: unspecified Time Spent (min) 17
--- OUTSIDE RECORDS SUMMARY | 2025-03-28 15:30 | XMS_ITS | Clinical Summary ---
Author Organization [facility] Address [address] [place] [address] Care Team Providers Care Improvement Rn Name Role Phone Krishan Cruz MD Primary [...] 63 04/26/2024 10:01 AM EDT Temperature 36.6 C (97.8 F) 04/26/2024 10:01 AM EDT Respiratory Rate - - Oxygen Saturation 100% [...] Fall Risk Assessment 2023 Influenza Vaccine (#1) 2025 DTap / Tdap / Td (3 - Td or Tdap) 04/30/2029 04/30/2019, 03/16/2017 Hepatitis B Vaccines Aged Out No long er eligible based on patient's age to complete this topic RSV Ped < 20 months Aged Out No longe r eligible based on patient's age to complete this topic Care Teams Improvement Rn Relationship Specialty Start Date End Date Krishan Cruz MD PCP - General Internal Medicine 08/27/17
--- OUTSIDE RECORDS SUMMARY | 2025-03-28 15:30 | XMS_ITS | Clinical Summary ---
Author [facility] Facility Address [address] [place] [address], [place] [address] Care Team Providers Care Whizzer Hand Name Role Phone Krishan Cruz MD Primary [...] 2 (two) times a day Active Umeclidinium [place] (Incruse Ellipta) 62.5 MCG/INH aerosol powder Active [...] Colorectal Cancer Screening: Sigmoidoscopy 2007 Influenza Vaccine (#1) 2025 Hepatitis B Vaccine Aged Out No longe r eligible based on patient's age to complete this topic Care Teams Whizzer Hand Relationship Specialty Start Date End Date Krishan Cruz MD [address] [place] [address] PCP - General 08/06/20
--- OUTSIDE RECORDS SUMMARY | 2025-03-28 15:30 | XMS_ITS | Clinical Summary ---
Author Organization [facility] Address [address] [place] [address] Phone Care Team Providers Care Needle Maker Name Role Phone Krishan Cruz MD Primary Care Provider + [phone] Allergies Active Allergy Reactions Criticality Noted Date [...] Dehydration 03/10/2023 PVC (premature ventricular contraction) 04/14/20 22 Atrial fibrillation with RVR ([facility] V24, [facility]/ [facility] V28) 04/14/2022 Paroxysmal atrial [place] [facility] V28[place] 04/08/2022 Overview (07/14/2024): Last Assessment [...] medications. Continue Lotrel and Lopressor. Follicular [place] [facility] [place] 0 12/14/2019 COPD (chronic obstructive pu lmonary disease) [place] [place] [facility] V28) 03/08/2018 Simple chronic bronchitis [place] [place] [facility] [place] 01/15/2018 Asthma 12/23/2016 Obstructive sleep apnea syndrome 10/21/2016 Encounters Date Type Department Care Team Description 03/25/2025 10:23 AM EDT - 03/25/2025 11:59 PM EDT Hospital Encounter [facility] Ultrasound [address] [place] [id number] Testicular discomfort Discharge Disposition: Home or Self Care 03/25/2025 10:10 AM EDT - 03/25/2025 10:12 AM EDT Emergency [facility] Emergency [address] [place] [address] Discharge Disposition: ED Dismiss - Diverted Elsewhere from Last 3 Months Surgical History Surgery Date Site/Laterality Comments OTHER SURGICAL HISTORY PROCEDURE:adenopathy of the right groin HERNIA REPAIR 1989 PROCEDURE:HERNIA REPAIR COLONOSCOPY 2014 PROCEDURE:COLONOSCOPY;COMMENT:dom mcgregor had 2 so far- Dr Mares UPPER GASTROINTESTINAL ENDOSCOPY 2014 PROCEDURE:UPPER GASTROINTESTINAL ENDOSCOPY;COMMENT:to rule out celiac spru Medical History Medical History Date Comments COPD (chronic obstructive pu lmonary disease) ([facility] V24, [facility] V28) 03/08/2018 DX:COPD (chronic o bstructive pulmonary disease) ([facility]) Asthma 12/23/2016 DX:Asthma Obstructive sleep apnea syndrome 10/21/2016 DX:Obstructive sleep apnea syndrome Simple chronic bronchitis ([facility] V24, [facility] V28) 01/15/2018 DX:Simple chronic bronchitis (HCC) Class 1 obesity DX:Class 1 obesi ty DVT of upper extremity (deep vein thrombosis) ([facility] V24, [facility] V28) 2014 DX:DVT of upper extremity (deep vein thrombosis) ([facility]) Lymphoma ([facility] V24, [facility] V28) DX:Lymphoma (HCC) Hypertension DX:Hypertension COPD (chronic obstructive pu lmonary disease) ([facility] V24, [facility] V28) DX:COPD (chronic o bstructive pulmonary disease) ([facility]) Vertigo DX:Vertigo Celiac disease DX:Celiac disease;COMMENT:Questionable history, remains on a gluten free diet Diffuse follicle center lymp mary ([facility] V24, [facility] V28) 09/23/2017 DX:Diffuse follicle center lymphoma (HCC) Family History Medical History Relation Name Comments [...] Description 04/26/2025 9:45 AM EDT Office Visit [facility] Hematology Oncology [address] [place] [phone] Radha Yap MD [address] [place] [phone] Health Maintenance Due Date Last Done Comments Hepatitis A Vaccines (1 of 2 - Risk 2-dose series) 1977 Zoster Vaccines (1 of 2) 1977 RSV Immunization Adult Patients (1 - Risk 60-74 years 1-dose series) 2018 Cholesterol Screening (Lipid Panel) 07/03/2022 Colorectal Cancer Screening: Colonoscopy 07/03/2022 Hepatitis C Screening 07/03/2022 Medicare Annual Wellness Visit 07/03/2022 Social Influencers of Health Screening 07/03/2022 Hypertension/CHF/CAD Annual BMP Blood Test 07/06/2022 Falls Risk Assessment 2023 Depression Screening 07/27/2024 COVID-19 Vaccine (4 - 2024-2 6 season) 2025 06/05/2021, 11/28/2020, 11/06/2020 Influenza Vaccine (#1) 2025 , 07/30/2023 DTaP,Tdap,and Td Vaccines (3 - Td or Tdap) 04/30/2029 04/30/2019, 03/16/2017 Pneumococcal Vaccine: 50+ Years Completed 08/17/2023 HIB Vaccines Aged Out No longer eligi [...] on patient's age to complete this topic Procedures Procedure Name Priority Date/Time Associated Diagnosis Comments US SCROTUM AND CONTENTS Routine 03/25/2025 11:09 AM EDT Testicular discomfort from Last 3 Months Results * US Scrotum and Contents (03/25/2025 [...] Signed Date: 03/25/2025 12:28 ET Workstation ID: [id number] Transcribed By: Self Edit Transcribed Date: 03/25/2025 [...] Signed Date: 03/25/2025 12:28 ET Workstation ID: [id number] Transcribed By: Self Edit Transcribed Date: 03/25/2025 12:20 ET Krishan Cruz MD [facility] PROCEDURES Final Resu lt from Last 3 Months Insurance [employer] MED[employer]ARE [employer] Care Teams Needle Maker Relationship Specialty Start Date End Date Krishan Cruz MD [address] [place] [address] PCP - General Internal Medicine 03/20/25
== END 2025-03-28 14:38 | disposition home or self-care (01) ==
LOC: HO.HPS 14:17
PROVIDERS: PCP Internal Medicine; Visit Provider Hospitalist
DX: J44.89 Other specified chronic obstructive pulmonary disease (principal); R06.09 Other forms of dyspnea; Z85.72 Personal history of non-Hodgkin lymphomas; G47.33 Obstructive sleep apnea (adult) (pediatric); I48.91 Unspecified atrial fibrillation
CPT/HCPCS: 99214; G2211